=== PATIENT | female | born 1970 | race Caucasian/White ===

== ENCOUNTER → 2018-06-03 15:22 | Outpatient (REF) | payer BC, SELFPAY ==
--- NOTE | 2018-06-03 15:03 | ENDOMET_PTH ---
PATIENT: Gillian Jorgensen LOC: [facility] U#:[id number] AGE/SX: 55/F ROOM: RE06/03/[address]: Sakina Sellers MD : 1970 BED: DIS: SPEC #: [id number] RECD: 06/03/18 16:04 STATUS: CESAR REShannon #: [id number] BROOK: 06/03/18 15:[address]: Sakina Sellers DEPT: Surgical Specimen RECD BY: Linh Bond ENTERED: 06/03/18 16:04 SP TYPE: Endomet OTHR DR: Guanakito Rutledge Tissues: 1 - ENDOMETRIUM BX/JENNIFER Procedures: GROSS AND MICRO LEVEL 4 Comments: [id number]
== END ==
LOC: LBN 15:22
PROVIDERS: PCP Internal Medicine; Visit Provider Obstetrics & Gynecology
DX: N85.01 Benign endometrial hyperplasia (principal)
CPT/HCPCS: 88305

== ENCOUNTER 2019-05-21 11:28 | Outpatient (REF) | payer BC, SELFPAY ==
--- NOTE | 2019-05-21 09:50 | PAPFT_PTH ---
PATIENT: Gillian Jorgensen LOC: [facility] U#:[id number] AGE/SX: 48/F ROOM: RE05/21/[address]: Miley Reyes NP : 1970 BED: DIS: 05/21/2019 SPEC #: [id number] RECD: 05/21/19 12:51 STATUS: CESAR REShannon #: [id number] BROOK: 05/21/19 09:[address]: Miley Reyes NP DEPT: [facility] Cytology RECD BY: Linh Bond ENTERED: 05/21/19 12:51 SP TYPE: PAPFT OTHR DR: Guanakito Rutledge Tissues: 1 - CX/ENDOCX FOR PAP SMEARS Procedures: PAP THIN PREP/UVM Screening HPV DNA PROBE Comments: [id number]
== END 2019-05-21 11:48 ==
LOC: LBN 11:28
PROVIDERS: PCP Internal Medicine; Visit Provider Nurse Practitioner Women's Health
DX: Z12.4 Encounter for screening for malignant neoplasm of cervix (principal); Z11.51 Encounter for screening for human papillomavirus (HPV)
CPT/HCPCS: 88142; 87624

== ENCOUNTER 2021-05-19 09:03 | Outpatient (REF) | payer BC, SELFPAY ==
[2021-05-19 16:40] LABS: Anion Gap 14.6 mmol/L (3-11); BUN 18 mg/dL (7-18); CO2 22.4 mmol/L (21.0-32.0); CREATININE 0.8 mg/dL (0.55-1.02); Calcium 9.1 mg/dL (8.5-10.1); Calculated LDL 99 mg/dL (<100); Chloride 106 mmol/L (98-107); Cholesterol 179 mg/dL (<200); Glucose 85 mg/dL (74-106); HDL Cholesterol 43 mg/dL (40-60); Potassium 4.2 mmol/L (3.5-5.1); Sodium 143 mmol/L (136-145); Triglyceride 186 mg/dL (<150)
== END 2021-05-19 09:04 | disposition home or self-care (01) ==
LOC: NCHCN 09:03
PROVIDERS: PCP Nurse Practitioner Family; Visit Provider Nurse Practitioner Family
DX: Z00.00 Encounter for general adult medical examination without abnormal findings (principal); Z13.220 Encounter for screening for lipoid disorders
CPT/HCPCS: 80048; 80061

== ENCOUNTER 2021-06-10 14:06 | Outpatient (REF) | payer BC, SELFPAY ==
--- NOTE | 2021-06-10 13:30 | PAPFT_PTH ---
PATIENT: Gillian Jorgensen LOC: [facility] U#:[id number] AGE/SX: 50/F ROOM: RE06/10/[address]: CLIVE Bejarano : 1970 BED: DIS: 06/10/2021 SPEC #: [id number] RECD: 06/10/21 16:46 STATUS: CESAR REQ #: [id number] BROOK: 06/10/21 13:[address]: Nancy Nunez DEPT: [facility] Cytology RECD BY: Linh Bond ENTERED: 06/10/21 16:47 SP TYPE: PAPFT OTHR DR: Zeinab Keene Tissues: 1 - CX/ENDOCX FOR PAP SMEARS Procedures: PAP THIN PREP/UVM Screening HPV DNA PROBE Comments: [id number]
== END 2021-06-10 14:07 | disposition home or self-care (01) ==
LOC: LBN 14:06
PROVIDERS: PCP Nurse Practitioner Family; Visit Provider Nurse Practitioner Family
DX: Z12.4 Encounter for screening for malignant neoplasm of cervix (principal); Z11.51 Encounter for screening for human papillomavirus (HPV)
CPT/HCPCS: 88142; 87624

== ENCOUNTER 2023-05-14 03:04 | Outpatient (CLI) | payer BC, SELFPAY ==
--- NOTE | 2023-05-14 08:23 | DI.MAMMO_ITS ---
Exam(s) MAMMO SCREENING EXAM: MAMMO SCREENING CLINICAL HISTORY: screening,z12.39 TECHNIQUE: Mammograms were interpreted according to the usual protocol including computer analysis w [employer] CAD system, tomosynthesis and C-view imaging. COMPARISON: 2012 and 2015 FINDINGS: The breasts are composed of mainly fatty density , Breast Density category A. No suspicious masses or suspicious microcalcifications are seen. No skin thickening or abnormal axillary lymph nodes are seen. There has been no significant change from prior exams. IMPRESSION: BI-RADS Category 1, Negative mammogram Yearly screening mammography is recommended. Breast Density - Category A, fatty density. A negative radiographic report should not delay biopsy if a dominant or clinically suspicious mass is present. Up to ten percent of cancers are not identified on mammography. A negative report may reinforce clinical impression. Adenosis and dense breasts may obscure an underlying neoplasm. False positive reports average 6 to 10%. Patient will receive a letter notifying them of these results.
== END 2023-05-14 03:24 ==
LOC: DI 03:05
PROVIDERS: PCP Nurse Practitioner Family; Visit Provider Nurse Practitioner Women's Health
DX: Z12.31 Encounter for screening mammogram for malignant neoplasm of breast (principal)
CPT/HCPCS: 77063; 77067

== ENCOUNTER 2024-04-30 10:56 | Outpatient (REF) | payer BC, SELFPAY ==
--- NOTE | 2024-04-30 09:40 | PAPFT_PTH ---
PATIENT: Gillian Jorgensen LOC: [facility] U#:[id number] AGE/SX: 53/F ROOM: RE04/30/[address]: Miley Reyes NP : 1970 BED: DIS: 04/30/2024 SPEC #: [id number] RECD: 04/30/24 13:15 STATUS: CESAR GARCIA #: [id number] BROOK: 04/30/24 09:[address]: Miley Reyes NP DEPT: [facility] Cytology RECD BY: Linh Bond ENTERED: 04/30/24 13:15 SP TYPE: PAPFT OT DR: Unknown,Unknown Tissues: 1 - CX/ENDOCX FOR PAP SMEARS Procedures: PAP THIN PREP/UVM Screening HPV DNA PROBE Comments: [id number] (HPV 16 & 18/45)
== END 2024-04-30 10:57 | disposition home or self-care (01) ==
LOC: LBN 10:56
PROVIDERS: Visit Provider Nurse Practitioner Women's Health
DX: Z87.42 Personal history of other diseases of the female genital tract (principal)
CPT/HCPCS: 88142; 87624

== ENCOUNTER → 2024-05-22 00:12 | Outpatient (CLI) | payer BC, SELFPAY ==
--- OUTSIDE RECORDS SUMMARY | 2024-05-22 00:15 | XMS_ITS | Encounter Summary ---
Author Organization [facility] Address [address] [place] [address] Care Team Providers Care Narrow Fabric Calenderer Name Role Phone Christos Avina MD Primary Care Provider [phone] Encounter Details Date Type Department Care Team (Late st Contact Info) Description 05/27/2013 Results Only [facility] Laboratory Services - [facility] ([facility] [address] [place], [place] [address] Nancy Nunez, [facility] [address] [place] [address] [place] [address] Social History Tobacco Use Types Packs/Day Years Used Date Smoking Tobacco: Never Assessed Sex and Gender Information Value Date Recorded Sex Assigned at Not on file Gender Identity Not on file Sexual Orientation Not on file documented as of this encounter Plan of Treatment Not on file documented as of this encounter Procedures Procedure Name Priority Date/Time Associated Diagnosis Comments PAP TEST- RESULT ONLY Routine 05/27/2013 0:00 EDT documented in this encounter Results * PAP TEST- RESULT ONLY (05/27/2013 0:00 EDT) Pathology Report: CYTOPATHOLOGY REPORT Reports generated via electronic interface contain original data; however they are lacking the format of the original report. Caution should be taken when reading/interpreti ng unformatted reports. Name: ? GILLIAN JORGENSEN ? Accession #: ? [id number] : ? 1970 (Age: 42) ??F ?Collect Date: ? 05/27/2013 Location: ? [facility] ? Receive Date: ? 05/28/2013 Provider: ?NANCY NUNEZ LIFE SCIENCES MANAGER Copy to: ? Specimen/Source: ?Pap Test, Cervix/Endocervix, ThinPrep Imaging System with manual evaluation Last Menstrual Period: ? Menstrual/Pregnanc y Status: ? Irregular ? SPECIMEN ADEQUACY ? Satisfactory for Evaluation - transformation zone component present GENERAL CATEGORIZATION ? Negative for Intraepithelial Lesion or Malignancy ? Document reviewed and electronically signed by: ? Mona Cox, SCT(ASCP) ? Report Date: ??06/06/2013 12:08 End of Report BILL[facility] GARCÍA 05/27/2013 05/28/2013 Nancy Nunez LIFE SCIENCES MANAGER PATHOLOGY ORDERABLES Performing Organization Address City/State/[place] Co de Phone Number [facility] [address] [place] [address] documented in this encounter Visit Diagnoses Not on filedocumented in this encounter Care Teams Narrow Fabric Calenderer Relationship Specialty Start Date End Date Christos Avina MD [facility] [place], [place] [address] PCP - General 09/10/09 06/02/13 documented as of this encounter
--- OUTSIDE RECORDS SUMMARY | 2024-05-22 00:15 | XMS_ITS | Encounter Summary ---
Author Organization [facility] Address [address] [place] [address] Care Team Providers Care Ict Systems Test Engineer Name Role Phone Guanakito Rutledge MD Primary Care Provider [phone] Unknown, Provider Primary Care Provider [phone] Encounter Details Date Type Department Care Team (Late st Contact Info) Description 06/13/2021 Lab Requisition [facility] Pathology & Laboratory Medicine - [facility] [address] [place] [address] Nancy Nunez, [address] [place] [phone] Encounter for other general examination Social History Tobacco Use Types Packs/Day Years Used Date Smoking Tobacco: Never Assessed Interpersonal Safety Answer Date Record ed Physically Hurt Never 05/30/2020 Verbally Threaten Not on file 05/30/2020 Sex and Gender Information Value Date Recorded Sex Assigned at Not on file Gender Identity Not on file Sexual Orientation Not on file documented as of this encounter Plan of Treatment Not on file documented as of this encounter Procedures Procedure Name Priority Date/Time Associated Diagnosis Comments PAP TEST Today 06/10/2021 13:30 EDT Encounter for other general examination HPV DNA DETECTION WITH GENOTYPING, PCR Today 06/10/2021 13:30 EDT Encounter for other general examination documented in this encounter Results * HUMAN PAPILLOMAVIRUS (HPV) DETECTION-HIGH RISK TYPES (06/10/2021 13:30 EDT) HPV other High Risk types, PCR Negative Negative 06/23/2021 15:20 EDT [facility] Comment:No E6 or E7 mRNA is detected from HPV types 16,18,31,33,35,39,45,51,52,56,58,59,66, and 68 by supervisor boat outfitting mediated amplification. Papanicolaou smear specimen (specimen) CERVIX UTERI STRUCTURE / Unknown 06/10/2021 13:30 EDT 06/22/2021 10:59 EDT Nancy Nunez SUPERVISOR AGRICULTURAL EDUCATION MICROBIOLOGY - GENER AL ORDERABLES [facility] [address] [place] [address] * PAP TEST (06/10/2021 13:30 EDT) Specimens A. Cervix and/or Endocervix , ThinPrep Imaging System with Manual Evaluation 06/23/2021 15:20 T [facility] Specimen Adequacy Satisfactory for Evaluation - transformation zone component present 06/23/2021 15:20 [facility] General Categorization Negative for intraepithelial lesion or malignancy 06/23/2021 15:20 [facility] Attestation . 06/23/2021 15:20 [facility] at 1520 Clinical History See below 06/23/20 15:20 [facility] HPV The result for the Human Papillomavirus (HPV) Detection-High Risk Types is Negative. No E6 or E7 mRNA is detected from HPV types 16,18,31,33,35,39 ,45,51,52,56,58,5 9,66, and 68 by supervisor boat outfitting mediated amplification.Soo ting was performed on specimen [id number] and was resulted on 06/23/2021 1458 EDT by JACKIE, LAB INSTRUMENT RESULTS IN 06/23/2021 15:20 T [facility] Performing Lab [facility] 06/23/2021 15:20 T [facility] Scanned Images 06/23/2021 15:20 EDT [facility] Papanicolaou smear specimen (specimen) CERVIX UTERI STRUCTURE / Unknown 06/10/2021 13:30 EDT 06/13/2021 14:51 EDT Nancy Nunez SUPERVISOR AGRICULTURAL EDUCATION PATHOLOGY ORDERABLES Performing Organization Address City/State/[facility] Co de Phone Number [facility] [address] [place] [address] documented in this encounter Visit Diagnoses Diagnosis Encounter for other general examination documented in this encounter Care Teams Ict Systems Test Engineer Relationship Specialty Start Date End Date Guanakito Rutledge MD PCP - General 06/06/18 04/27/22 Unknown, ProviderMD PCP - General 04/28/24 documented as of this encounter
--- OUTSIDE RECORDS SUMMARY | 2024-05-22 00:15 | XMS_ITS | Encounter Summary ---
Author Organization [facility] [place] [address] Care Team Providers Care Medical Record Coder Name Role Phone Rizwan Liang DO Primary Care Provider [phone] Reason for Visit * Reason Comments Medication Refill Encounter Details Date Type Department Care Team ([facility] st Contact Info) Description 07/31/2015 Refill [place] [address] Shady Marquez APRN [facility] [place]STRO[place] [address] Social History Tobacco Use Types Packs/Day Years Used Date Smoking Tobacco: Never Sex and Gender Information Value Date Recorded Sex Assigned at Not on file Gender Identity Not on file Sexual Orientation Not on file documented as of this encounter Plan of Treatment Not on file documented as of this encounter Visit Diagnoses Not on filedocumented in this encounter Care Teams Medical Record Coder Relationship Specialty Start Date End Date Rizwan Liang DO [address] [facility] [place] [address] PCP - General 11/06/12 documented as of this encounter
--- OUTSIDE RECORDS SUMMARY | 2024-05-22 00:15 | XMS_ITS | Encounter Summary ---
Author Organization [facility] Address [address] [place] [address] Care Team Providers Care Log Handling Equipment Operator Name Role Phone Malika Corley MD Primary Care Provider Lu cortes Encounter Details Date Type Department Care Team (Latest Contact Info) Description 05/16/2018 15:07 EDT - 05/16/2018 18:35 EDT Hospital Encounter [address] [address] Unknown, Provider, Discharge Disposition: Home or Self Care Social History Tobacco Use Types Packs/Day Years Used Date Smoking Tobacco: Never Assessed Sex and Gender Information Value Date Recorded Sex Assigned at Not on file Gender Identity Not on file Sexual Orientation Not on file documented as of this encounter Discharge Disposition Disposition Code Departure Means Destination Home or Self Long Term documented in this encounter Plan of Treatment Not on file documented as of this encounter Visit Diagnoses Not on filedocumented in this encounter Care Teams Log Handling Equipment Operator Relationship Specialty Start Date End Date Malika Corley MD [address] [place] [address] PCP - General 06/03/13 8 documented as of this encounter
--- OUTSIDE RECORDS SUMMARY | 2024-05-22 00:15 | XMS_ITS | Encounter Summary ---
Author Organization [facility] [place] [address] Care Team Providers Care Excavating Supervisor Name Role Phone Rizwan Liang Primary Care Provider [phone] Encounter Details Date Type Department Care Team (Late st Contact Info) Description 11/14/2012 8:00 AM EST Office Visit [place] [phone] Joann Carson RVT Edema of both legs (Primary Dx) Social History Tobacco Use Types Packs/Day Years Used Date Smoking Tobacco: Never Sex and Gender Information Value Date Recorded Sex Assigned at Not on file Gender Identity Not on file Sexual Orientation Not on file documented as of this encounter Plan of Treatment Not on file documented as of this encounter Procedures Procedure Name Priority Date/Time Associated Diagnosis Comments VENOUS VALVULAR INCOMP, BILAT LEGS Routine 11/14/2012 8:18 AM EST Edema of both legs documented in this encounter Results * Venous Valvular Incomp, Bilat Legs (11/14/2012 8:18 AM EST) VB Text Report Department: Vascular Surgery Lab Patient: [id number] (EDE GILLIAN) CPT Code: 85902 ICD-9: 782.3 Referring Physician: MAKAYLA WHITFIELD Indication: ?? bilateral lower extremity edema; ? venous valvular incompetence ICD9 Diagnosis Code: Bilateral 782.3 Findings: Right Common Femoral Vein ?Reflux?: Competent ?Patency?: Yes Femoral Vein Thigh ?Reflux?: Competent ?Patency?: Yes Popliteal ?Reflux?: Competent ?Patency?: Yes Posterior Tibial Vein ?Reflux?: Competent ?Patency?: Yes Great Saphenous Vein, Near SFJ ?Reflux?: Reflux ?Patency?: Yes ?Diameter AP (mm): 6.9 ?Depth (mm): 15.9 Great Saphenous, Upper Thigh ?Reflux?: Reflux ?Patency?: Yes ?Diameter AP (mm): 5.3 ?Depth (mm): 25.5 Great Saphenous Vein, Mid Thigh ?Reflux?: Reflux ?Patency?: Yes ?Diameter AP (mm): 4.1 ?Depth (mm): 25.3 Great Saphenous Vein, ??Knee ?Reflux?: Competent ?Patency?: Yes ?Diameter AP (mm): 3.4 ?Depth (mm): 13.1 Great Saphenous Vein, Below Knee ?Reflux?: Competent ?Patency?: Yes ?Diameter AP (mm): 3.8 ?Depth (mm): 4.8 Short Saphenous, Below Knee ?Reflux?: Competent ?Patency?: Yes Left Common Femoral Vein ?Reflux?: Reflux ?Patency?: Yes Femoral Vein Thigh ?Reflux?: Reflux ?Patency?: Yes Popliteal ?Reflux?: Competent ?Patency?: Yes Posterior Tibial Vein ?Reflux?: Competent ?Patency?: Yes Great Saphenous Vein, Near SFJ ?Reflux?: Reflux ?Patency?: Yes ?Diameter AP (mm): 6.8 ?Depth (mm): 18.0 Great Saphenous, Upper Thigh ?Reflux?: Competent ?Patency?: Yes ?Diameter AP (mm): 6.1 ?Depth (mm): 31.1 Great Saphenous Vein, Mid Thigh ?Reflux?: Reflux ?Patency?: Yes ?Diameter AP (mm): 4.1 ?Depth (mm): 23.8 Great Saphenous Vein, ??Knee ?Reflux?: Competent ?Patency?: Yes ?Diameter AP (mm): 3.4 ?Depth (mm): 23.2 Great Saphenous Vein, Below Knee ?Reflux?: Competent ?Patency?: Yes ?Diameter AP (mm): 2.7 ?Depth (mm): 8.6 Short Saphenous, Below Knee ?Reflux?: Reflux ?Patency?: Yes Interpretation: RIGHT: Findings consistent with superficial venous valvular incompetence > 0.5 seconds in the GSV from the SFJ to the mid thigh, competent GSV from the distal thigh to the ankle. No evidence of deep venous valvular incompetence. No evidence of deep (fem-pop) or superficial vein thrombus. LEFT: There is reflux > 4 seconds in the small saphenous vein following distal augmentation maneuver. There is superficial venous valvular incompetence > 0.5 seconds in the GSV at the SFJ and at the mid thigh; competent GSV from the distal thigh to the ankle. There is reflux in the CFV and mid thigh femoral vein, competent in the popliteal vein and calf. No evidence of deep (fem-pop) or superficial vein thrombus. Comparison: No previous study in our vascular lab database for comparison. Signed by CLOTILDE KIRAN on 2012-11-14 02:11:56 PM [facility] VB Text Report End of Report [facility] 11/14/2012 8:18 AM EST Makayla Whitfield MD VASCULAR ORDERABLES [facility] documented in this encounter Visit Diagnoses Diagnosis Edema of both legs- Primary Edema documented in this encounter Care Teams Excavating Supervisor Relationship Specialty Start Date End Date Rizwan Liang DO [address] [place] [address] PCP - General 11/06/12 documented as of this encounter
--- OUTSIDE RECORDS SUMMARY | 2024-05-22 00:15 | XMS_ITS | Encounter Summary ---
Author Organization [facility] Address [address] [place] [address] Care Team Providers Care Doctor Of Medicine Name Role Phone Unknown, Provider Primary Care Provider [phone] Encounter Details Date Type Department Care Team (Late st Contact Info) Description 05/02/2024 Lab Requisition [facility] Pathology & Laboratory Medicine - [address] [address] Miley Reyes, PEOPLE MANAGER [address] [phone] Encounter for other general examination Social History [...] Date/Time Associated Diagnosis Comments PAP TEST Today 04/30/2024 9:40 EDT Encounter for other general examination HPV DNA DETECTION WITH GENOTYPING, PCR Today 04/30/2024 9:40 EDT Encounter for other general examination documented in this encounter Results * HPV DNA DETECTION WITH GENOTYPING, PCR (04/30/2024 9:40 EDT) HPV High Risk type 16, PCR Negative Negative 05/08/2024 15:51 EDT [facility] HPV High Risk type 18, PCR Negative Negative 05/08/2024 15:51 [facility] HPV other High Risk types, PCR Negative Negative 05/08/2024 15:51 [facility] Comment: The following Other High Risk HPV types were not detected: ??31,33, 35, 39, 45, 51, 52, 56, 58, 59, 66 and 68. Pap Test CERVIX UTERI STRUCTURE / Unknown 04/30/2024 9:40 EDT 05/07/2024 11:03 EDT Miley Reyes APRN MICROBIOLOGY - GE NERAL ORDERABLES [facility] [address] [place] [phone] * PAP TEST (04/30/2024 9:40 EDT) Specimens A. Cervix and/or Endocervix , ThinPrep Imaging System with Manual Evaluation 05/08/2024 15:51 [facility] Specimen Adequacy Satisfactory for Evaluation - transformation zone component present 05/08/2024 15:51 [facility] General Categorization Other see recommendation - Negative for intraepithelial lesion or malignancy 05/08/2024 15:51 [facility] Descriptive Diagnosis Endometrial cells present in a woman equal to or greater than age 45. 05/08/2024 15:51 [facility] Educational Comments Endometrial cells present. Endometrial cells in women 45 years or older may be associated with benign endometrium, hormonal alterations, and, less commonly, endometrial or uterine abnormalities. Endometrial evaluation is recommended in postmenopausal women. 05/08/2024 15:51 [facility] Attestation By the signature below, the attending physician certifies that they have personally conducted a gross and/or microscopic examination of the described specimens and rendered or confirmed the above diagnosis. 05/08/2024 15:51 [facility] at 1551 Clinical History See below 05/08/20 15:51 [facility] Performing Lab [facility] 05/08/2024 15:51 EDT [facility] Scanned Images 05/08/2024 15:51 EDT [facility] HPV High Risk type 16, PCR Negative 05/08/2024 15:51 EDT [facility] HPV High Risk type 18, PCR Negative 05/08/2024 15:51 EDT [facility] HPV Other High Risk Types, PCR Negative The following Other High Risk HPV types were not detected: 31,33, 35, 39, 45, 51, 52, 56, 58, 59, 66 and 68. 05/08/2024 15:51 EDT [facility] Pap Test CERVIX UTERI STRUCTURE / Unknown 04/30/2024 9:40 EDT 05/02/2024 15:52 EDT Miley Reyes PEOPLE MANAGER PATHOLOGY ORDERAB LES Performing Organization Address City/State/[facility] Co de Phone Number [facility] [address] [place] [address] documented in this encounter Visit Diagnoses Diagnosis Encounter for other general examination documented in this encounter Care Teams Doctor Of Medicine Relationship Specialty Start Date End Date Unknown, Provider, PCP - General 04/28/24 documented as of this encounter
--- OUTSIDE RECORDS SUMMARY | 2024-05-22 00:15 | XMS_ITS | Encounter Summary ---
Author Organization [facility] Address [address] [place] [address] Care Team Providers Care Outreach Assistant Name Role Phone Christos Avina MD Primary Care Provider Encounter Details Date Type Department Care Team (Late st Contact Info) Description 06/14/2005 Results Only [facility] [address] [place] [address] Nancy Nunez, [facility] [address] [place] [address] [place] [address] Social History Tobacco Use Types Packs/Day Years Used Date Smoking Tobacco: Never Assessed Sex and Gender Information Value Date Recorded Sex Assigned at Not on file Gender Identity Not on file Sexual Orientation Not on file documented as of this encounter Plan of Treatment Not on file documented as of this encounter Procedures Procedure Name Priority Date/Time Associated Diagnosis Comments CYTOPATHOLOGY Routine 06/14/2005 0:00 EDT documented in this encounter Results * CYTOPATHOLOGY (06/14/2005 0:00 EDT) Pathology Report: CYTOPATHOLOGY REPORT Reports generated via electronic interface contain original data; however they are lacking the format of the original report. Caution should be taken when reading/interpreti ng unformatted reports. Name: ? GILLIAN JORGENSEN ? Accession #: ? [id number] : ? 1970 (Age: 34) ??F ?Collect Date: ? 06/14/2005 Location: ? [facility] ? Receive Date: ? 06/16/2005 Provider: ?NANCY NUNEZ DEEP WELL CONTRACTOR Copy to: ? Specimen/Source: ?ThinPrep Pap Test, Cervix/Endocervix, processed on [employer] ThinPrep Imaging System, with manual evaluation Last Menstrual Period: ? 05/21/05 Previous Gynecologic Pathology: ? Benign cellular changes: & 07/29 Other: ? Additional clinical information: 12/30 pap neg. HPVA - HPV testing requested if ASC-US on the current ThinPrep Pap test. ? SPECIMEN ADEQUACY ? Satisfactory for Evaluation - transformation zone component present GENERAL CATEGORIZATION ? Negative for Intraepithelial Lesion or Malignancy ? Document reviewed and electronically signed by: ? KRYSTLE Lilly(ASCP) ? Report Date: ??06/26/2005 14:56 End of Report [facility] 06/14/2005 06/16/2005 Nancy Nunez DEEP WELL CONTRACTOR PATHOLOGY ORDERABLES [facility] [address] [place] [address] documented in this encounter Visit Diagnoses Not on filedocumented in this encounter Care Teams Outreach Assistant Relationship Specialty Start Date End Date Christos Avina MD [address] [place] [address] PCP - General 09/10/09 06/02/13 documented as of this encounter
--- OUTSIDE RECORDS SUMMARY | 2024-05-22 00:15 | XMS_ITS | Encounter Summary ---
Author Organization [facility] Address [address] [place] [address] Care Team Providers Care Assembly Line Machine Operator Name Role Phone Raven Corley MD Primary Care Provider Joaquína ble Encounter Details Date Type Department Care Team (Late st Contact Info) Description 05/22/2017 Results Only [facility] [[email or web address] [phone] Raven Corley MD [address] [place] [address] Social History Tobacco Use Types Packs/Day Years [...] Diagnosis Comments PAP TEST- RESULT ONLY Routine 05/22/2017 0:00 EDT documented in this encounter Results * PAP TEST- RESULT ONLY (05/22/2017 0:00 EDT) Pathology Report: CYTOPATHOLOGY REPORT Reports generated via electronic interface contain original data; however they are lacking the format of the original report. Caution should be taken when reading/interpreti ng unformatted reports. Name: ? GILLIAN JORGENSEN ? Accession #: ? [id number] ? : ? 1970 (Age: 46) ??F ?Collect Date: ? 05/22/2017 ? Location: ? [facility] ? Receive Date: ? 05/23/2017 ? Provider: RAVEN CORLEY MD Copy to: JUDE BROWNE MD ? Final Report SPECIMEN ADEQUACY ? Satisfactory for Evaluation - transformation zone component present GENERAL CATEGORIZATION ? Negative for Intraepithelial Lesion or Malignancy ?? Last Menstrual Period: 05/08/17 Previous Gynecologic Pathology: Yes: hx em Hyperplasia neg/neg Other: Additional clinical information: Low risk pap hx last 05/2014 Specimen/Source: ??Pap Test, Cervix, ThinPrep Imaging System with manual evaluation Document reviewed and electronically signed by: ? Andreea Angela, CT(ASCP) ? Report ??Date: 06/01/2017 10:24 HPV with Pap Test ? Date Ordered: ? 06/01/2017 ? Status: ?? Signed Out ?Date Complete: ? 06/04/2017 ? By: ??System Interface ? Date Reported: ? 06/04/2017 ? 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 E6 OR E7 mRNA from one or more types of HPV types 16,18,31, 33,35,39,45,51,52, 56,58,59,66, and 68 is detected by wage and salary specialist mediated amplification. High and intermediate risk HPV types are associated with most squamous intraepithelial lesions and cervical cancers. Comments Document reviewed and electronically signed by: ? System Interface ? Report date: 06/04/2017 By the signature above, the attending physician certifies that he/she has personally conducted a gross and/or microscopic examination of the described specimens and rendered or confirmed the above diagnosis. End of Report [facility] 05/22/2017 05/23/2017 Raven Corley MD PATHOLOGY ORDERABLES [facility] [address] [place] [address] documented in this encounter Visit Diagnoses Not on filedocumented in this encounter Care Teams Assembly Line Machine Operator Relationship Specialty Start Date End Date Raven Corley MD [address] [place] [address] PCP - General 06/03/13 8 documented as of this encounter
--- OUTSIDE RECORDS SUMMARY | 2024-05-22 00:15 | XMS_ITS | Referral Summary ---
Author Organization [facility] Address [address] [place] [address] Care Team Providers Care Shift Superintendent Name Role Phone Unknown, Provider Primary Care Provider [phone] Encounters Date Type Department Care Team Description 05/02/2024 Lab Requisition [facility] Pathology & Laboratory Medicine - [facility] [address] [place] [address] Miley Reyes APRN Encounter for other general examination from Last 3 Months Social History Tobacco Use Types Packs/Day Years Used Date Smoking Tobacco: Never Assessed Interpersonal Safety Answer Date Record ed Physically Hurt Never 05/30/2020 Verbally Threaten Not on file 05/30/2020 Sex and Gender Information Value Date Recorded Sex Assigned at Not on file Gender Identity Not on file Sexual Orientation Not on file Plan of Treatment Not on file Procedures Procedure Name Priority Date/Time Associated Diagnosis Comments PAP TEST Today 04/30/2024 9:40 EDT Encounter for other general examination HPV DNA DETECTION WITH GENOTYPING, PCR Today 04/30/2024 9:40 EDT Encounter for other general examination from Last 3 Months Results * PAP TEST (04/30/2024 9:40 EDT) Specimens A. Cervix and/or Endocervix , ThinPrep Imaging System with Manual Evaluation 05/08/2024 15:51 EDT [facility] Specimen Adequacy Satisfactory for Evaluation - transformation zone component present 05/08/2024 15:51 EDT [facility] General Categorization Other see recommendation - Negative for intraepithelial lesion or malignancy 05/08/2024 15:51 [facility] Descriptive Diagnosis Endometrial cells present in a woman equal to or greater than age 45. 05/08/2024 15:51 [facility] Educational Comments Endometrial cells present. Endometrial cells in women 45 years or older may be associated with benign endometrium, hormonal alterations, and, less commonly, endometrial or uterine abnormalities. Endometrial evaluation is recommended in postmenopausal women. 05/08/2024 15:51 [facility] Attestation By the signature below, the attending physician certifies that they have personally conducted a gross and/or microscopic examination of the described specimens and rendered or confirmed the above diagnosis. 05/08/2024 15:51 [facility] at 1551 Clinical History See below 05/08/20 15:51 [facility] Performing Lab [facility] 05/08/2024 15:51 [facility] Scanned Images 05/08/2024 15:51 [facility] HPV High Risk type 16, PCR Negative 05/08/2024 15:51 [facility] HPV High Risk type 18, PCR Negative 05/08/2024 15:51 [facility] HPV Other High Risk Types, PCR Negative The following Other High Risk HPV types were not detected: 31,33, 35, 39, 45, 51, 52, 56, 58, 59, 66 and 68. 05/08/2024 15:51 [facility] Pap Test CERVIX UTERI STRUCTURE / Unknown 04/30/2024 9:40 EDT 05/02/2024 15:52 EDT Miley Reyes RADIO TELEVISION ANNOUNCER PATHOLOGY ORDERAB LES [facility] [address] [place] [address] * HPV DNA DETECTION WITH GENOTYPING, PCR (04/30/2024 9:40 EDT) HPV High Risk type 16, PCR Negative Negative 05/08/2024 15:51 EDT [facility] HPV High Risk type 18, PCR Negative Negative 05/08/2024 15:51 EDT [facility] HPV other High Risk types, PCR Negative Negative 05/08/2024 15:51 EDT [facility] Comment: The following Other High Risk HPV types were not detected: ??31,33, 35, 39, 45, 51, 52, 56, 58, 59, 66 and 68. Pap Test CERVIX UTERI STRUCTURE / Unknown 04/30/2024 9:40 EDT 05/07/2024 11:03 EDT Miley Reyes APRN MICROBIOLOGY - NERAL ORDERABLES [facility] [address] [place] [address] from Last 3 Months Care Teams Shift Superintendent Relationship Specialty Start Date End Date Unknown, Provider, PCP - General 04/28/24
--- OUTSIDE RECORDS SUMMARY | 2024-05-22 00:15 | XMS_ITS | Encounter Summary ---
Author Organization [facility] Address [address] [place] [address] Care Team Providers Care Infection Prevention Specialist Name Role Phone Raven Corley MD Primary Care Provider Joaquína ble Encounter Details Date Type Department Care Team (Late st Contact Info) Description 05/29/2014 Results Only [facility]- [facility] [phone] Raven Corley MD [address] [place] [address] Social History Tobacco Use Types Packs/Day Years [...] Diagnosis Comments PAP TEST- RESULT ONLY Routine 05/29/2014 0:00 EDT documented in this encounter Results * PAP TEST- RESULT ONLY (05/29/2014 0:00 EDT) Pathology Report: CYTOPATHOLOGY REPORT Reports generated via electronic interface contain original data; however they are lacking the format of the original report. Caution should be taken when reading/interpreti ng unformatted reports. Name: ? GILLIAN JORGENSEN ? Accession #: ? [id number] ? : ? 1970 (Age: 43) ??F ?Collect Date: ? 05/29/2014 ? Location: ? [facility] ? Receive Date: ? 06/01/2014 ? Provider: RAVEN CORLEY MD Copy to: JUDE BROWNE MD ? Final Report SPECIMEN ADEQUACY ? Satisfactory for Evaluation - transformation zone component present GENERAL CATEGORIZATION ? Negative for Intraepithelial Lesion or Malignancy ?? Specimen/Source: ??Pap Test, Cervix/Endocervix, ThinPrep Imaging System with manual evaluation Document reviewed and electronically signed by: ? Milka Suh, CT(ASCP) ? Report ??Date: 06/03/2014 10:28 HPV with Pap Test ? Date Ordered: ? 06/03/2014 ? Status: ?? Signed Out ?Date Complete: ? 06/05/2014 ? By: ??System Interface ? Date Reported: ? 06/05/2014 ? Interpretation RESULT: Negative for HPV. No E6 or E7 mRNA is detected from HPV types 16,18,31,33,35, 39,45,51,52,56,58, 59,66, and 68 by eeo officer mediated amplification. Comments Document reviewed and electronically signed by: ? System Interface ? Report date: 06/05/2014 By the signature above, the attending physician certifies that he/she has personally conducted a gross and/or microscopic examination of the described specimens and rendered or confirmed the above diagnosis. End of Report [facility] 05/29/2014 06/01/2014 Raven Corley MD PATHOLOGY ORDERABLES Performing Organization Address City/State/[facility] Co de Phone Number [facility] [address] [place] [address] documented in this encounter Visit Diagnoses Not on filedocumented in this encounter Care Teams Infection Prevention Specialist Relationship Specialty Start Date End Date Raven Corley MD [address] [place] [address] PCP - General 06/03/13 8 documented as of this encounter
--- OUTSIDE RECORDS SUMMARY | 2024-05-22 00:15 | XMS_ITS | Clinical Summary ---
Author Organization [facility] Address [address] [place] [address] Care Team Providers Care Minesweeping Officer Name Role Phone Unknown, Provider Primary Care Provider [phone] Encounters Date Type Department Care Team Description 05/02/2024 Lab Requisition [facility] Pathology & Laboratory Medicine - [facility] [address] [place] [address] Miley Reyes APRN Encounter for other general [...] Orientation Not on file Plan of Treatment Health Maintenance Due Date Last Done Comments Hepatitis C Screen 1970 Hepatitis B Vaccine (1 of 3 - 19+ 3-dose series) 09/07 COVID-19 Vaccine (2022- season) 2023 Procedures Procedure Name Priority Date/Time Associated Diagnosis Comments PAP TEST Today 04/30/2024 9:40 EDT Encounter for other general examination HPV DNA DETECTION WITH GENOTYPING, PCR Today 04/30/2024 9:40 EDT Encounter for other general examination from Last 3 Months Results * PAP TEST (04/30/2024 9:40 EDT) Specimens A. Cervix and/or Endocervix , ThinPrep Imaging System with Manual Evaluation [facility] Specimen Adequacy Satisfactory for Evaluation - transformation zone component present 05/08/2024 15:51 [facility] General Categorization Other see recommendation - Negative for intraepithelial lesion or malignancy 05/08/2024 15:51 [facility] Descriptive Diagnosis Endometrial cells present in a woman equal to or greater than age 45. 05/08/2024 15:51 [facility] Educational Comments Endometrial cells present. Endometrial cells in women 45 years or older may be associated with benign endometrium, hormonal alterations, and, less commonly, endometrial or uterine abnormalities. Endometrial evaluation is recommended in postmenopausal women. 05/08/2024 15:51 [facility] Attestation By the signature below, the attending physician certifies that they have personally conducted a gross and/or microscopic examination of the described specimens and rendered or confirmed the above diagnosis. 05/08/2024 15:51 [facility] at 1551 Clinical History See below 05/08/20 15:51 [facility] Performing Lab [facility] 05/08/2024 15:51 [facility] Scanned Images 05/08/2024 15:51 [facility] HPV High Risk type 16, PCR Negative 05/08/2024 15:51 [facility] HPV High Risk type 18, PCR Negative 05/08/2024 15:51 [facility] HPV Other High Risk Types, PCR Negative The following Other High Risk HPV types were not detected: 31,33, 35, 39, 45, 51, 52, 56, 58, 59, 66 and 68. 05/08/2024 15:51 [facility] Pap Test CERVIX UTERI STRUCTURE / Unknown 04/30/2024 9:40 EDT 05/02/2024 15:52 EDT Miley A Eric COMPOSING ROOM SUPERVISOR PATHOLOGY ORDERAB LES [facility] [address] [place] [address] * HPV DNA DETECTION WITH GENOTYPING, PCR (04/30/2024 9:40 EDT) HPV High Risk type 16, PCR Negative Negative 05/08/2024 15:51 EDT [facility] HPV High Risk type 18, PCR Negative Negative 05/08/2024 15:51 EDT [facility] HPV other High Risk types, PCR Negative Negative 05/08/2024 15:51 EDT [facility] Comment: The following Other High Risk HPV types were not detected: ??31,33, 35, 39, 45, 51, 52, 56, 58, 59, 66 and 68. Pap Test CERVIX UTERI STRUCTURE / Unknown 04/30/2024 9:40 EDT 05/07/2024 11:03 EDT Miley Reyes COMPOSING ROOM SUPERVISOR MICROBIOLOGY - GE NERAL ORDERABLES Performing Organization Address City/State/[facility] Co de Phone Number [facility] [address] [place] [address] from Last 3 Months Care Teams Minesweeping Officer Relationship Specialty Start Date End Date Unknown, Provider, PCP - General 04/28/24
--- OUTSIDE RECORDS SUMMARY | 2024-05-22 00:15 | XMS_ITS | Encounter Summary ---
Author Organization [facility] Address [address] [place] [address] Care Team Providers Care Instrument/Control Technician Name Role Phone Christos Sykes MD Primary Care Provider [phone] Encounter Details Date Type Department Care Team (Late st Contact Info) Description 01/03/2008 Results Only [facility] [address] [place] [address] Malissa Powell MD [address] [address] Social History Tobacco Use Types Packs/Day Years Used Date Smoking Tobacco: Never Assessed Sex and Gender Information Value Date Recorded Sex Assigned at Not on file Gender Identity Not on file Sexual Orientation Not on file documented as of this encounter Plan of Treatment Not on file documented as of this encounter Procedures Procedure Name Priority Date/Time Associated Diagnosis Comments CYTOPATHOLOGY Routine 01/03/2008 0:00 EST SURGICAL PATHOLOGY Routine 01/03/2008 0:00 EST documented in this encounter Results * SURGICAL PATHOLOGY (01/03/2008 0:00 EST) Pathology Report: SURGICAL PATHOLOGY REPORT Reports generated via electronic interface contain original data; however they are lacking the format of the original report. Caution should be taken when reading/interpreti ng unformatted reports. Name: ? GILLIAN JORGENSEN ? Accession #: ? [id number] ? : ? 1970 (Age: 37) ??F ? Collect Date: ? 01/03/2008 ? Location: ? [facility] ? Receive Date: ? 01/04/2008 ? Provider: MALISSA POWELL MD Copy to: CHRISTOS SYKES MD ? Final Pathologic Diagnosis: ? Endometrium, biopsy: - Simple hyperplasia without atypia. Document reviewed and electronically signed by: AURE WALKER MD Report ??Date: 01/08/2008 16:42 By the signature above, the attending physician certifies that he/she has personally conducted a gross and/or microscopic examination of the described specimens and rendered or confirmed the above diagnosis. Specimen(s) Received: ? Endo bx Clinical History: ? Dysfunctional uterine bleeding Gross Description: ? Received in formalin labelled Jorgensen and leif bx is a 2.1 x 0.9 x 0.4 cm aggregate of roth, hemorrhagic tissue. ??Submitted in toto in one cassette. (Tyron Gonzalez)/mpl End of Report [facility] 01/03/2008 01/04/2008 8:3 7 EST Malissa Powell MD PATHOLOGY ORDERABLES [facility] [address] [place] [address] * CYTOPATHOLOGY (01/03/2008 0:00 EST) Pathology Report: CYTOPATHOLOGY REPORT Reports generated via electronic interface contain original data; however they are lacking the format of the original report. Caution should be taken when reading/interpreti ng unformatted reports. Name: ? GILLIAN JORGENSEN ? Accession #: ? [id number] : ? 1970 (Age: 37) ??F ?Collect Date: ? 01/03/2008 Location: ? [facility] ? Receive Date: ? 01/06/2008 Provider: ?MALISSA POWELL MD Copy to: ? Specimen/Source: ?ThinPrep Pap Test, Cervix/Endocervix, processed on Myfacep[employer] ThinPrep Imaging System, with manual evaluation Last Menstrual Period: ? 11/05 Other: ? HPVA - HPV testing requested if ASC-US on the current ThinPrep Pap test. Additional clinical information: Dysfunctional uterine bleeding ? SPECIMEN ADEQUACY ? Unsatisfactory for Evaluation, - insufficient numbers of squamous epithelial cells (less than 10% of expected cellularity) - sample preparation compromised by excessive blood GENERAL CATEGORIZATION ? Specimen processed and examined, but unsatisfactory for evaluation of epithelial abnormality. Recommend repeat Pap test or further follow up, as clinically indicated. ? Document reviewed and electronically signed by: ? KRYSTLE Powell(ASCP)(IAC) ? Report Date: ??01/07/2008 14:01 End of Report [facility] 01/03/2008 01/06/2008 Malissa Powell MD PATHOLOGY ORDERABLES [facility] [address] [place] [address] documented in this encounter Visit Diagnoses Not on filedocumented in this encounter Care Teams Instrument/Control Technician Relationship Specialty Start Date End Date Christos Sykes MD [facility] [place] [place] [address] PCP - General 09/10/09 06/02/13 documented as of this encounter
--- OUTSIDE RECORDS SUMMARY | 2024-05-22 00:15 | XMS_ITS | Encounter Summary ---
[place] [address] Care Team Providers Care Electrician'S Assistant Name Role Phone Rizwan Liang DO Primary Care Provider [phone] Reason for Visit * Reason Onset Date Comments Medication Refill 05/31/2015 Encounter Details Date Type Department Care Team (Late st Contact Info) Description 05/31/2015 Ref[place] [address] Sally Aguilar CMA GASTROENTEROLOGY DEPT Social History Tobacco Use Types Packs/Day Years Used Date Smoking Tobacco: Never Sex and Gender Information Value Date Recorded Sex Assigned at Not on file Gender Identity Not on file Sexual Orientation Not on file documented as of this encounter Plan of Treatment Not on file documented as of this encounter Visit Diagnoses Not on filedocumented in this encounter Care Teams Electrician'S Assistant Relationship Specialty Start Date End Date Rizwan Liang DO [address] [facility] [place] [address] PCP - General 11/06/12 documented as of this encounter
--- OUTSIDE RECORDS SUMMARY | 2024-05-22 00:15 | XMS_ITS | Encounter Summary ---
Author Organization [facility] Address [address] [place] [address] Care Team Providers Care Sterile Processing Technician Name Role Phone Amy Avina MD Primary Care Provider [phone] Encounter Details Date Type Department Care Team (Late st Contact Info) Description 12/22/2010 Results Only [facility] [phone] Raven Corley MD [address] [place] [address] Social History Tobacco Use Types Packs/Day Years Used Date Smoking Tobacco: Never Assessed Sex and Gender Information Value Date Recorded Sex Assigned at Not on file Gender Identity Not on file Sexual Orientation Not on file documented as of this encounter Plan of Treatment Not on file documented as of this encounter Procedures Procedure Name Priority Date/Time Associated Diagnosis Comments CYTOPATHOLOGY Routine 12/22/2010 0:00 EST SURGICAL PATHOLOGY Routine 12/22/2010 0:00 EST documented in this encounter Results * CYTOPATHOLOGY (12/22/2010 0:00 EST) Pathology Report: CYTOPATHOLOGY REPORT ? Reports generated via electronic interface contain original data; ? however they are lacking the format of the original report. ? Caution should be taken when reading/interpreti ng unformatted reports. ? Name: ? GILLIAN JORGENSEN ? Accession #: ? [id number] ? : ? 1970 (Age: 40) ??F ?Collect Date: ? 12/22/2010 ? Location: ? [facility] ? Receive Date: ? 12/23/2010 ? Provider: ?RAVEN CORLEY MD ? Copy to: ? Specimen/Source: ?Pap Test, Cervix/Endocervix, ThinPrep Imaging System ? with manual evaluation ? Last Menstrual Period: ? Other: ? Additional clinical information: Last pap 11/11/09 neg. ? SPECIMEN ADEQUACY ? Satisfactory for Evaluation ? - transformation zone component present ? GENERAL CATEGORIZATION ? Negative for Intraepithelial Lesion or Malignancy ? Document reviewed and electronically signed by: ? Rizwan Lubaler, CT(ASCP) ? Report Date: ??12/28/2010 10:07 ? End of Report ? [facility] 12/22/2010 12/23/2010 Raven Corley MD PATHOLOGY ORDERABLES [facility] [address] [place] [address] * SURGICAL PATHOLOGY (12/22/2010 0:00 EST) Pathology Report: SURGICAL PATHOLOGY REPORT ? Reports generated via electronic interface contain original data; ? however they are lacking the format of the original report. ? Caution should be taken when reading/interpreti ng unformatted reports. ? Name: ? GILLIAN JORGENSEN ? Accession #: ? [id number] ? : ? 1970 (Age: 40) ??F ? Collect Date: ? 12/22/2010 ? Location: ? [facility] ? Receive Date: ? 12/23/2010 ? Provider: RAVEN S ASHELY MD ? Copy to: AMY MARCIAL WOOD MD ? Final Pathologic Diagnosis: ? Endometrium, biopsy: ? - Disordered proliferative endometrium. ? Document reviewed and electronically signed by: ? ABDELMONEM ELHOSSEINY MD ? Report ??Date: 12/27/2010 17:58 ? By the signature above, the attending physician certifies that he/she has ? personally conducted a gross and/or microscopic examination of the described ? specimens and rendered or confirmed the above diagnosis. ? Specimen(s) Received: ? Endometrial bx ? Clinical History: ? Endometrial hyperplasia without atypia ? Gross Description: ? Received in formalin labelled Gillian Jorgensen and endometrial biopsy is a 1.5 x 1.5 x 0.4 cm aggregate of pink-roth, soft tissue fragments admixed with a small amount of red-brown blood clot. ??The specimen is filtered and entirely ? submitted in a single cassette. ??(Matthias Castillo)/[facility] ? End of Report ? [facility] 12/22/2010 12/23/2010 9:0 6 EST Raven Corley MD PATHOLOGY ORDERABLES [facility] [address] [place] [address] documented in this encounter Visit Diagnoses Not on filedocumented in this encounter Care Teams Sterile Processing Technician Relationship Specialty Start Date End Date Amy Avina MD [address] [place] [id number] PCP - General 09/10/09 06/02/13 documented as of this encounter
--- OUTSIDE RECORDS SUMMARY | 2024-05-22 00:15 | XMS_ITS | Encounter Summary ---
Author Organization [facility] [place] [address] Care Team Providers Care An/Ssn 2 4 Operator Name Role Phone None Primary Care Provider Unavailabl e Reason for Visit * Reason Onset Date Comments Other 10/08/2012 has increased be ntyl herself Encounter Details Date Type Department Care Team (Late st Contact Info) Description 10/08/2012 Telephone [place] [address] Shady Marquez APRN [facility] [address] [place] [address] Other (has increased bentyl herself) Social History Tobacco Use Types Packs/Day Years Used Date Smoking Tobacco: Never Assessed Sex and Gender Information Value Date Recorded Sex Assigned at Not on file Gender Identity Not on file Sexual Orientation Not on file documented as of this encounter Miscellaneous Notes * Telephone Encounter - Kendra Gómez RN - 10/08/2012 9:54 AM EST Pt. Has increased her bentyl to 2 pills tid Will update T Charmaine MURAL ARTIST ? probiotics I have left her a message to call back as not home Will explore increased s/s ? Using immodium, ? Diarrhea, diet? fodmap? documented in this encounter Plan of Treatment Not on file documented as of this encounter Visit Diagnoses Not on filedocumented in this encounter Care Teams An/Ssn 2 4 Operator Relationship Specialty Start Date End Date None None PCP - General 05/22/12 11/05/12 documented as of this encounter
--- OUTSIDE RECORDS SUMMARY | 2024-05-22 00:15 | XMS_ITS | Clinical Summary ---
Author Organization [facility] [place] [address] Care Team Providers Care Bending Shed Worker Name Role Phone Rizwan Liang DO Primary Care Provider Allergies No known active allergies Medications Medication Sig Dispensed Refills Start Date End Date Status CIS Free Text Med - immodium AD 02/04/2007 Active citalopram (CELEXA) 10 mg tablet 10MG = 1 Tablet(s), PO, Once daily 02/04/2007 Active topiramate (TOPAMAX) 50 mg tablet Take 50 mg by mouth daily. Active oxybutynin (DITROPAN) 5 mg tablet Take 5 mg by mouth 2 times daily. Active metFORMIN (GLUCOPHAGE) 850 mg tablet Take 850 mg by mouth 2 times daily (with meals). Active ropinirole (REQUIP) 4 mg tablet Take 8 mg by mouth nightly. Active dicyclomine (BENTYL) 10 mg Capsule Take 1 capsule by mouth daily. 30 capsule 1 05/31/2015 Active Active Problems Problem Noted Date Diagnosed Date Leg swelling 11/14/2012 IBS (irritable bowel syndrome) 05/22/2012 Social History Tobacco Use Types Packs/Day Years Used Date Smoking Tobacco: Never Sex and Gender Information Value Date Recorded Sex Assigned at Not on file Gender Identity Not on file Sexual Orientation Not on file Last Filed Vital Signs Vital Sign Reading Time Taken Comments Blood Pressure 112/55 11/14/2012 10:19 AM EST RI GHT Pulse 60 11/14/2012 10:19 AM EST Temperature - - Respiratory Rate - - Oxygen Saturation - - Inhaled Oxygen Concentration - - Weight 143.3 kg (316 lb) 11/14/2012 10:18 AM EST Height 167.6 cm (5' 6) 11/14/2012 10:18 AM EST Body Mass Index 51 11/14/2012 10:18 AM EST Plan of Treatment Health Maintenance Due Date Last Done Comments CT Colonography 1972 Colonoscopy 1972 Colorectal Cancer Screening 1972 FIT DNA 1972 FIT 1972 Sigmoidoscopy (10 year) with FIT yearly 1972 Sigmoidoscopy 1972 HIV screen 1990 Hepatitis C Screening 1990 Hepatitis B vaccine (0-59 yrs) (1) 1991 Tdap adult 1991 Tetanus vaccine 1991 HPV test 2002 PAP Smear 2002 Breast Cancer Share Decision Needed 2012 Breast Cancer screening 2012 Zoster vaccine (1 of 2) 2022 Covid-19 Vaccine (1 - 2022-24 season) 2023 Influenza (Flu) vaccine (1 o f 1 - Influenza standard series) 06/29/2024 Care Teams Bending Shed Worker Relationship Specialty Start Date End Date Rizwan Liang DO [address] [place] [address] PCP - General 11/06/12
--- OUTSIDE RECORDS SUMMARY | 2024-05-22 00:15 | XMS_ITS | Encounter Summary ---
Author Organization [facility] [place] [address] Care Team Providers Care Oiling Machine Operator Name Role Phone Rizwan Liang DO Primary Care Provider [phone] Reason for Visit * Reason Comments Medication Refill Encounter Details Date Type Department Care Team ([facility] st Contact Info) Description 08/13/2013 Refill [place] [address] Shady Marquez APRN [facility] [place] [address] Social History Tobacco Use Types Packs/Day Years Used Date Smoking Tobacco: Never Sex and Gender Information Value Date Recorded Sex Assigned at Not on file Gender Identity Not on file Sexual Orientation Not on file documented as of this encounter Plan of Treatment Not on file documented as of this encounter Visit Diagnoses Not on filedocumented in this encounter Care Teams Oiling Machine Operator Relationship Specialty Start Date End Date Rizwan Liang DO [address] [facility] [place] [address] PCP - General 11/06/12 documented as of this encounter
--- OUTSIDE RECORDS SUMMARY | 2024-05-22 00:15 | XMS_ITS | Encounter Summary ---
Author Organization [facility] [place] [address] Care Team Providers Care Manager Pacu Name Role Phone Rizwan Liang Primary Care Provider + [phone] Reason for Visit * Reason Comments Medication Problem Encounter Details Date Type Department Care Team (Late st Contact Info) Description 06/07/2015 Tele[place] [phone] Erica Villalpando, RN DEPT OF GASTROENTEROLOGY Medication Problem Social History Tobacco Use Types Packs/Day Years Used Date Smoking Tobacco: Never Sex and Gender Information Value Date Recorded Sex Assigned at Not on file Gender Identity Not on file Sexual Orientation Not on file documented as of this encounter Miscellaneous Notes * Telephone Encounter - Erica Rudolph RN - 06/07/2015 12:06 PM EDT Patient leaves message indicating last dicyclomine refill was incorrect, she takes 10mg, two capsules three times daily before meals, and there was only one refill. Returned patient's call indicated I could help fix script, however, she had not been seen for threeyears and needs an office visit. She states she can not come in until September, but has PCP visit tomorrow. She will ask PCP to fill. Advised patient call back if PCP not willing. Patient verbalized understanding. documented in this encounter Plan of Treatment Not on file documented as of this encounter Visit Diagnoses Not on filedocumented in this encounter Care Teams Manager Pacu Relationship Specialty Start Date End Date Rizwan Liang DO [address] [place] [phone] PCP - General 11/06/12 documented as of this encounter
--- OUTSIDE RECORDS SUMMARY | 2024-05-22 00:15 | XMS_ITS | Encounter Summary ---
[place] [address] Care Team Providers Care Joint Cleaning Machine Operator Name Role Phone Rizwan Liang Primary Care Provider [phone] Encounter Details Date Type Department Care Team (Late st Contact Info) Description 11/06/2012 Orders [place] [phone] Svetlana Marvin RN Edema of both legs Social History Tobacco Use Types Packs/Day Years Used Date Smoking Tobacco: Never Assessed Sex and Gender Information Value Date Recorded Sex Assigned at Not on file Gender Identity Not on file Sexual Orientation Not on file documented as of this encounter Plan of Treatment Not on file documented as of this encounter Results * Venous Valvular Incomp, Bilat Legs (11/14/2012 8:18 AM EST) VB Text Report Department: Vascular Surgery Lab Patient: [id number] (GILLIAN JORGENSEN) CPT Code: 90734 ICD-9: 782.3 Referring Physician: MAKAYLA WHITFIELD Indication: [...] AM EST Makayla Whitfield MD VASCULAR ORDERABLES Performing Organization Address City/State/[place] de Phone Number [facility] documented in this encounter Visit Diagnoses Diagnosis Edema of both legs Edema documented in this encounter Care Teams Joint Cleaning Machine Operator Relationship Specialty Start Date End Date Rizwan Liang DO [address] [place] [phone] PCP - General 11/06/12 documented as of this encounter
--- OUTSIDE RECORDS SUMMARY | 2024-05-22 00:15 | XMS_ITS | Encounter Summary ---
Author Organization [facility] Address [address] [place] [address] Care Team Providers Care Auto Body Repair Estimator Name Role Phone Malika Corley MD Primary Care Provider Joaquína ble Encounter Details Date Type Department Care Team (Late st Contact Info) Description 06/03/2018 Results Only [facility] [phone] Sakina Sellers MD [address] [place] [phone] Social History Tobacco Use Types Packs/Day Years Used Date Smoking Tobacco: Never Assessed Sex and Gender Information Value Date Recorded Sex Assigned at Not on file Gender Identity Not on file Sexual Orientation Not on file documented as of this encounter Plan of Treatment Not on file documented as of this encounter Procedures Procedure Name Priority Date/Time Associated Diagnosis Comments SURGICAL PATHOLOGY Routine 06/03/2018 8:48 EDT documented in this encounter Results * SURGICAL PATHOLOGY (06/03/2018 8:48 EDT) Pathology Report: SURGICAL PATHOLOGY REPORT Reports generated via electronic interface contain original data; however they are lacking the format of the original report. Caution should be taken when reading/interpret ing unformatted reports. Name: ? GILLIAN JORGENSEN ? Accession #: ? [id number] ? : ? 1970 (Age: 47) ??F ? Collect Date: ? 06/03/2018 ? Location: ? [facility] ? Receive Date: ? 06/04/2018 ? Provider: SAKINA SELLERS MD Copy to: JUDE ABBASI APRN ? Final Pathologic Diagnosis: ENDOMETRIUM, BIOPSY: - Secretory endometrium. Document reviewed and electronically signed by: KATIE DEL ANGEL MD Report ??Date: 06/05/2018 10:40 By the signature above, the attending physician certifies that he/she has personally conducted a gross and/or microscopic examination of the described specimens and rendered or confirmed the above diagnosis. Specimen(s) Received: Endometrial curettage Clinical History: Hx endometrial hyperplasia, simple, LMP: 05/07/18 Gross Description: ? Received in formalin labelled with proper patient identification (initials H, M) and endometrial curettage is an aggregate of roth and brown tissue (1.8 x 1.1 x 0.3 cm). Submitted in toto in 1 and 2. Cortez Root 06/04/2018 9:14 AM End of Report [facility] 06/03/2018 8:48 EDT 06/04/2018 8:48 EDT Sakina Sellers MD PATHOLOGY ORDERABLES [facility] [address] [place] [address] documented in this encounter Visit Diagnoses Not on filedocumented in this encounter Care Teams Auto Body Repair Estimator Relationship Specialty Start Date End Date Malika Corley MD [address] [place] [address] PCP - General 06/03/13 8 documented as of this encounter
--- OUTSIDE RECORDS SUMMARY | 2024-05-22 00:15 | XMS_ITS | Data Portability ---
Author Organization [place] - [facility] Address [address] [place] [address] Assessment No assessment recorded. Plan of Treatment Reminders Order Date Submit Date Provider Last Modified By Organization Details Last Modified Time Details Appointments Annual Wellness Exam 40 2023 02:30P M Bruce Mayes Not available Not available Not available Lab None recorded. Referral general surgeon referral - Pt, 53-F, for screening colo. Pt. mother w/hx. of anal cancer in early 50's. No signs/sym potms of CC. 2023 024 [facility], [address] [place] [address] , [address], [place], [address], 05/02/2024 08:20:24 Procedures None recorded. Surgeries None recorded. Imaging None recorded. Medication Orders None recorded. Patient TargetsNo targets recorded. Patient Instructions Encounter Date Encounter Id Patient Instructions Last Modified By Organization Details Last Modified Time 02/11/2024 [id number] Please take caffeine and ibuprofen/Aleve/A spirine/Excedrine vacation. If you are still experiencing high headache frequency after this, do give us a call and let us know, I would likely start you on an additional medication. [email or web address] Not available 02/11/2024 10:59:15 Reason for Referral General Surgeon Referral for Screening for malignant neoplasm of colon Pt, 53-F, for screening colo. Pt. mother w/hx. of anal cancer in early 50's. No signs/sympotms of CC. Referring Physician: Yordan Mayes, Family Medicine, Encounter Date: 02/11/2024 Problems Name Status Onset Date Resolution Date Notes Provider Name and Address Organization Details Recorded Time Body mass index 40+ - severely obese Active 201509/08/2022 - Comments only - Zeinab Keene APRN - Wt stable, though pt aware that her diet is not optimal. Reviewed low carb diet recommendatio ns. Problem Code: Z68.41; Problem Code Type: ICD-10; Not Available [facility] 3 05:30:22 Migraine Active 201505/16/2018 - Comments only - Zeinab Keene APRN - Managed with topiramate. Problem Code: G43.909; Problem Code Type: ICD-10; Not Available [facility] 3 05:30:22 Anxiety Active 201509/08/2022 - Comments only - Zeinab Keene APRN - Stable, well-controll ed with fluoxetine 30mg daily. Problem Code: F41.8; Problem Code Type: ICD-10; Not Available [facility] 3 05:30:22 Polycystic ovary syndrome Active 201509/08/2022 - Comments only - Zeinab Keene APRN - Menses are regular on metformin. Problem Code: E28.2; Problem Code Type: ICD-10; Not Available [facility] 3 05:30:22 Irritable bowel syndrome Active 201509/08/2022 - Comments only - Zeinab Keene APRN - Currently well-managed with dicyclomine and SSRI for anxiety. Problem Code: K58.9; Problem Code Type: ICD-10; Not Available [facility] 3 05:30:22 Adult health examination Active 201509/08/2022 - Comments only - Zeinab Keene APRN - Has mammogram scheduled, screening colonoscopy ordered, UTD with pap. Pt declines covid booster and flu vaccine, utd with tetanus vaccine. Problem Code: Z00.00; Problem Code Type: ICD-10; Not Available [facility] 3 05:30:22 Counseling Completed 201606/01/2017 05/21/2017 - Comments only - Zeinab Keene APRN - Up to date with preventive screening and immunizations . Has [employer] WORK[employer] care at . Problem Code: Z71.89; Problem Code Type: ICD-10; Not Available [facility] 3 05:30:22 Restless legs Active 201605/16/2018 - Comments only - Zeinab Keene APRN - Appears to be muscular, no neurological sxs. Referral to PT. Problem Code: G25.81; Problem Code Type: ICD-10; Not Available [facility] 3 05:30:22 Cough Completed 201709/16/2018 Problem Code: R05; Problem Code Type: ICD-10; Not Available [facility] 3 05:30:23 Adjustment disorder with depressed mood Active 2019 Problem Code: F43.21; Problem Code Type: ICD-10; Not Available [facility] 3 05:30:23 Hyperlipidemi a screening Active 2020 Problem Code: Z13.220; Problem Code Type: ICD-10; Not Available [facility] 3 05:30:23 Screening for malignant neoplasm of colon Active 2021 Problem Code: Z12.11; Problem Code Type: ICD-10; Not Available [facility] 3 05:30:23 Urge incontinence of urine Active 202109/08/2022 - Comments only - Zeinab Keene APRN - Referral to PT, as recommended by [employer] RO[employer] WORKER. Problem Code: N39.41; Problem Code Type: ICD-10; Not Available [facility] 3 05:30:23 Severe obesity Completed 201507/25/2023 05/16/2018 - Comments only - Zeinab Keene APRN - Strongly encouraged to start regular exercise program. Work on limiting carbs, sugars and total calories. Problem Code: E66.01; Problem Code Type: ICD-10; Not Available [facility] 3 05:30:23 Low back pain Completed 201711/28/2019 Problem Code: M54.5; Problem Code Type: ICD-10; Not Available [facility] 3 05:30:23 Migraine without aura Completed 201206/06/2016 Problem Code: 346.1; Problem Code Type: ICD-9; Not Available [facility] 3 05:30:24 Disorder of skin and/or subcutaneous tissue Completed 201905/19/2021 Problem Code: L98.9; Problem Code Type: ICD-10; Not Available [facility] 3 05:30:24 Fatigue Completed 201905/19/2021 Problem Code: R53.83; Problem Code Type: ICD-10; Not Available [facility] 3 05:30:24 Morbid obesity Completed 201206/06/2016 Not Available [facility] 3 05:30:24 Irritable bowel syndrome Completed 201206/06/2016 Not Available [facility] 3 05:30:24 Adjustment disorder Completed 201905/19/2021 Problem Code: F43.20; Problem Code Type: ICD-10; [facility] [address] , [facility] 4 06:35:52 Bronchitis Completed 201705/30/2019 Problem Code: J40; Problem Code Type: ICD-10; Not Available [facility] 3 05:30:24 Polycystic ovaries Completed 201206/06/2016 Not Available [facility] 3 05:30:24 Anxiety state Completed 201206/06/2016 Problem Code: 300.00; Problem Code Type: ICD-9; Not Available [facility] 3 05:30:25 Adjustment disorder Active 2023 Problem Code: F43.20; Problem Code Type: ICD-10; [facility] [address] , [facility] 4 06:35:52 Headache Active [address] [facility] [address] , [facility] 4 13:48:37 Migraine with aura Active 2023 JOEL CAO [address], [place], [address] , [facility] 4 07:56:16 Migraine without aura, not refractory Active 2023 JOEL CAO [address], [place], [address] , [facility] 4 07:56:33 Problem Notes None recorded. Medical Equipment None Reported. Medications Name Sig Start Date Stop Date Status Note LastModified by Organization Details LastModified Time benzonata te 200 mg capsule Take 1 cap by mouth three times daily as needed for cough 05/30 completed Not Available Not Available Not Available citalopra m 10 mg tablet 1TAB daily 06/17 completed Not Available Not Available Not Available valacyclo vir 1 gram tablet TAKE TWO TABLETS BY MOUTH TWICE A DAY FOR 1 DAY NEEDED FOR COLD SORE OUTBREAK 2023 active Not Available Not Available Not Avai lable Lotrisone 1 %-0.05 % topical cream Apply thin layer to lesion on ear 06/18 completed Not Available Not Available Not Available metformin 850 mg tablet TAKE ONE TABLET BY MOUTH TWICE A DAY active Not Available Not Available No t Available amoxicill in 500 mg tablet Take one tab by mouth three times a day 10/27 completed Dental prescrip tion Not Available Not Available Not Available lorazepam 0.5 mg tablet Take 1 tab by mouth daily as needed for panic attack 06/18 completed Not Available Not Available Not Available dicyclomi ne 20 mg tablet TAKE ONE TABLET BY MOUTH THREE TIMES A DAY NEEDED active Not Available Not Available No t Available meclizine 25 mg tablet 1TAB three times daily 11/27 completed Not Available Not Available Not Available fluoxetin e 20 mg tablet TAKE 1&1/2 TABLETS BY MOUTH ONCE DAILY active Not Available Not Available No t Available fluoxetin e 10 mg capsule TAKE ONE CAPSULE BY MOUTH AT BEDTIME ALONG WITH 20MG FOR TOTAL DOSE OF 30MG active Not Available Not Available No t Available Provera 10 mg tablet 1TAB daily 12/24 completed Not Available Not Available Not Available topiramat e 100 mg tablet TAKE ONE TABLET BY MOUTH TWICE A DAY active Not Available Not Available No t Available fluoxetin e 20 mg capsule TAKE ONE CAPSULE BY MOUTH AT BEDTIME ALONG WITH 10MG FOR TOTAL DOSE OF 30MG active Not Available Not Available No t Available topiramat e 50 mg tablet 1TAB twice daily 06/17 completed Not Available Not Available Not Available Imodium A-D 10-15 CAP daily 11/28 completed Not Available Not Available Not Available Symbicort 80 mcg-4.5 mcg/actua tion HFA aerosol inhaler INHALE 1 PUFF BY MOUTH TWICE DAILY 06/18 completed Not Available Not Available Not Available Probiotic 10 billion cell capsule 1 tablet by mouth twice a day 2017 active OTC Not Available Not Available Not Avai lable Probiotic 1 tab twice daily 2017 active OTC Not Available Not Available Not Avai lable Osteo Bi-Flex 250 mg-200 mg tablet active Not Available Not Available Not Available dicyclomi ne 10 mg tablet 2CAP three times daily at meal 12/24 completed Not Available Not Available Not Available Vitals Date Recorded Body height Body mass index (BMI) Body weight Body temperature Oxygen saturation Oxygen saturation in Arterial blood by Pulse oximetry Heart rate Systolic blood pressure Diastolic blood pressure Provider Name and Address Organization Details Last Updated DateTime 4 165.1 cm 44.3 kg/m2 134280. 29 g 97.7 [degF] 96 % 96 % 84 /min 108 mm[Hg] 68 mm[Hg] SHANTAL GONSALVES MA [facility] 4 10:31:27 Social History None recorded. Functional Status None recorded. Mental Status None recorded. Family History Relationship Description Onset Age of this Age Resolved Age Notes Mother Family history of Arthritis Mother Family history of ca ncer of colon Mother Family history of he art failure Father Family history of malignant neoplasm Notes:*Problem: Mother: Caitlin lucas 67 yrs heart problems, DJD bothering her bones needs replacements, anal cancer Father: from prostate cancer Sisters: 1 good health Brothers: 1 as baby, 1 good health Children: 1 good health Family History of: Hypertension: No Hyperlipidemia: No Coronary heart disease: Yes mother, mother's parents and father's parents Diabetes mellitus: Yes father's side Breast cancer: Yes gram's cousin Colorectal cancer: Yes mother Prostate cancer: Yes father Alcoholism: Yes brother Mental illness: No Other: No Medical History No medical history recorded. Gynecological HistoryNo gynecological history recorded. Obstetrics History GPAL:G 0 P 0 0 0 0 Immunizations Vaccine Type Date Status Provider Name and Address Organization Details Recorded Time Tdap 06/17/2013 completed Not Available [facility] 06:11:17 COVID-19 vaccine, vector-nr, rS-Ad26, PF, 0.5 mL 05/19/2021 completed Not Available [facility] 2023 06:11:18 influenza, unspecified formulation 12/24/2014 completed Not Available [facility] 2023 06:11:18 influenza, unspecified formulation 10/28/2013 completed Not Available [facility] 2023 06:11:18 Past Encounters Encounter ID Performer Location Encounter Start Date Encounter Closed Date Diagnosis/Indication Diagnosis SNOMED-CT Code [id number] [address] [place] [address] 02/11/2024 10:16:05 02/11/2024 11:20:30 Anxiety 67827804 Irritable bowel syndrome 28184305 Polycystic ovary syndrome 704577929 Adjustment disorder 1722 6007 Migraine 86236466 Screening for malignant neoplasm of colon 062451081 Health Concerns Section Related Observation LastModified by Organization Detai ls LastModified Time None Recorded Concern Status LastModified by Organization Details LastModified Time None Recorded Advance Directives Directive None Recorded Payers Encounter Date Sequence Insurance Name Policy Number Policy Mcdonald Covered Member ID Mcdonald Member ID Guarantor Name 02/11/2024 1 [place] [employer] [place] [employer] BLUE [employer]AN F (MEDICARE SUPPLEMENT) Gillian Jorgensen [id number] Gillian Jorgensen Notes Date Note Type Note Provider Name and Address Organization Details Recorded Time 02/11/2024 text/html HPI Notes: Pt, 53-F, here to establish care with new provider. She has hx. of multiple chronic conditions including IBS, migraine, anxiety, severe obesity, PCOS, HSV-1 (cold sores). See med list for modifying factor. Migraine, Pt. reports having regular Migraine breakthrough. She is having migraine about 1-2 times per week. Sometimes it's just a headache. She's been using the Excedrin trying to head it off and sometimes it works, sometimes accompanying light headedness. On a regular workday, one travel mug of caffiene. On a weekend 2-3 cups of coffee. Pt. denies any new stresses in life. She does report some times when she is waking up her mind gets busy and can have difficulty falling back asleep. 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 Topomax is the only preventative medication she has ever taken. Pt. reports headache may be more geared towards morning. Pt. reports she has been taking Excedrine every morning. [facility], she had pap in 2022. Also had mammogram in summer , she states they were all WNL.. Colonoscopy. Pt. reports mom had anal cancer. No change in bowel pattern, no dark tarry stools, no blood in stool, no pencil thin stools. JOEL CAO [address], [place], [address], [facility]. 02/11/2024 12:46:16 OBGyn Episode No OBEpisode recorded.
--- OUTSIDE RECORDS SUMMARY | 2024-05-22 00:15 | XMS_ITS | Encounter Summary ---
Author Organization [facility] [place] [address] Care Team Providers Care Finance Insurance Manager Name Role Phone Rizwan Liang DO Primary Care Provider Reason for Visit * Reason Comments Medication Refill Encounter Details Date Type Department Care Team ([facility] st Contact Info) Description 06/11/2014 [place] [address] Shady Marquez APRN [facility] [place] [address] Social History Tobacco Use Types Packs/Day Years Used Date Smoking Tobacco: Never Sex and Gender Information Value Date Recorded Sex Assigned at Not on file Gender Identity Not on file Sexual Orientation Not on file documented as of this encounter Plan of Treatment Not on file documented as of this encounter Visit Diagnoses Not on filedocumented in this encounter Care Teams Finance Insurance Manager Relationship Specialty Start Date End Date Rizwan Liang DO [address] [facility] [place] [address] PCP - General 11/06/12 documented as of this encounter
--- OUTSIDE RECORDS SUMMARY | 2024-05-22 00:15 | XMS_ITS | Encounter Summary ---
Author Organization [facility] [place] [address] Care Team Providers Care Corrections Unit Supervisor Name Role Phone Rizwan Liang DO Primary Care Provider Reason for Visit * Reason Onset Date Comments Medication Refill 10/10/2012 Encounter Details Date Type Department Care Team (Late st Contact Info) Description 10/10/2012 Refill [place] [address] Shady Marquez APRN [facility] [address] [place] [address] Abdominal spasms (Primary Dx) Social History Tobacco Use Types Packs/Day Years Used Date Smoking Tobacco: Never Assessed Sex and Gender Information Value Date Recorded Sex Assigned at Not on file Gender Identity Not on file Sexual Orientation Not on file documented as of this encounter Plan of Treatment Not on file documented as of this encounter Visit Diagnoses Diagnosis Abdominal spasms- Primary Abdominal pain, unspecified site documented in this encounter Care Teams Corrections Unit Supervisor Relationship Specialty Start Date End Date Rizwan Liang DO [address] [place] [address] PCP - General 11/06/12 documented as of this encounter
--- OUTSIDE RECORDS SUMMARY | 2024-05-22 00:15 | XMS_ITS | Encounter Summary ---
[place] [address] Care Team Providers Care Bus Person Dishwasher Name Role Phone Christos Avina MD Primary Care Provider [phone] Reason for Visit * Reason Onset Date Comments Medication Refill 02/28/2011 Encounter Details Date Type Department Care Team (Late st Contact Info) Description 02/28/2011 Ref[place] [address] Pearl [place] RN Abdominal spasms (Primary Dx) Social History Tobacco [...] site documented in this encounter Care Teams Bus Person Dishwasher Relationship Specialty Start Date End Date Christos Avina MD [address] [place] [address] PCP - General 09/20/10 05/21/12 documented as of this encounter
--- OUTSIDE RECORDS SUMMARY | 2024-05-22 00:15 | XMS_ITS | Encounter Summary ---
Author Organization [facility] Address [address] [place] [address] Care Team Providers Care Pile Trimmer Name Role Phone Guanakito Rutledge MD Primary Care Provider [phone] Encounter Details Date Type Department Care Team (Late st Contact Info) Description 05/21/2019 Results Only [facility] [phone] Briseida Abbasi, CASHIER SELF SERVICE GASOLINE [address] [address] Social History Tobacco Use Types [...] Diagnosis Comments PAP TEST- RESULT ONLY Routine 05/21/2019 0:00 EDT documented in this encounter Results * PAP TEST- RESULT ONLY (05/21/2019 0:00 EDT) Pathology Report: CYTOPATHOLOGY REPORT Reports generated via electronic interface contain original data; however they are lacking the format of the original report. Caution should be taken when reading/interpreti ng unformatted reports. Name: ? GILLIAN JORGENSEN ? Accession #: ? [id number] ? : ? 1970 (Age: 48) ??F ?Collect Date: ? 05/21/2019 ? Location: ? [facility] ? Receive Date: ? 05/22/2019 ? Provider: BRISEIDA ABBASI CASHIER SELF SERVICE GASOLINE Copy to: GUANAKITO RUTLEDGE MD ? Final Report SPECIMEN ADEQUACY ? Satisfactory for Evaluation - transformation zone component absent GENERAL CATEGORIZATION ? Negative for Intraepithelial Lesion or Malignancy INTERPRETATION ? Reactive cellular changes associated with inflammation present (includes repair). 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 Last Menstrual Period: 05/01/19 Previous Gynecologic Pathology: ASC-US: 2018 Infection History: Pos for HPV: 2017 Neg for HPV: 2018 Specimen/Source: ??Pap Test, Cervix, ThinPrep Imaging System with manual evaluation Document reviewed and electronically signed by: ? MITCHELL OTTO MD ? Report ??Date: 05/27/2019 11:02 HPV with Pap Test ? Date Ordered: ? 05/27/2019 ? Status: ?? Signed Out ?Date Complete: ? 05/28/2019 ? By: ??System Interface ? Date Reported: ? 05/28/2019 ? Interpretation RESULT: Negative for HPV. No E6 or E7 mRNA is detected from HPV types 16,18,31,33,35, 39,45,51,52,56,58, 59,66, and 68 by paring machine operator mediated amplification. Comments Document reviewed and electronically signed by: ? System Interface ? Report date: 05/28/2019 By the signature above, the attending physician certifies that he/she has personally conducted a gross and/or microscopic examination of the described specimens and rendered or confirmed the above diagnosis. End of Report [facility] 05/21/2019 05/22/2019 Briseida Abbasi APRN PATHOLOGY ORDERAB LES [facility] [address] [place] [address] documented in this encounter Visit Diagnoses Not on filedocumented in this encounter Care Teams Pile Trimmer Relationship Specialty Start Date End Date Guanakito Rutledge MD PCP - General 06/06/18 04/27/22 documented as of this encounter
--- OUTSIDE RECORDS SUMMARY | 2024-05-22 00:15 | XMS_ITS | Encounter Summary ---
Author Organization Health system Address [address] [place] [address] Care Team Providers Care Strand Galvanizer Name Role Phone Malika Corley MD Primary Care Provider Joaquína ble Encounter Details Date Type Department Care Team (Late st Contact Info) Description 05/16/2018 Results Only [facility] [phone] Briseida Abbasi, CRUDE OIL DRIVER [address] [address] Social History Tobacco Use Types [...] Date/Time Associated Diagnosis Comments SURGICAL PATHOLOGY Routine 05/16/2018 22 :52 EDT PAP TEST- RESULT ONLY Routine 05/16/2018 0:00 EDT documented in this encounter Results * SURGICAL PATHOLOGY (05/16/2018 22:52 EDT) Pathology Report: SURGICAL PATHOLOGY REPORT Reports generated via electronic interface contain original data; however they are lacking the format of the original report. Caution should be taken when reading/interpret ing unformatted reports. Name: ? GILLIAN JORGENSEN ? Accession #: ? [id number] ? : ? 1970 (Age: 47) ??F ? Collect Date: ? 05/16/2018 ? Location: ? [facility] ? Receive Date: ? 05/16/2018 ? Provider: BRISEIDA ABBASI APRN Copy to: JUDE BROWNE MD ? Final Pathologic Diagnosis: ENDOMETRIUM, BIOPSY: - Fragments of endocervical tissue with microglandular hyperplasia and squamous metaplasia. - No endometrial tissue identified. Document reviewed and electronically signed by: JESÚS RODRIGUES MD Report ??Date: 05/20/2018 14:56 By the signature above, the attending physician certifies that he/she has personally conducted a gross and/or microscopic examination of the described specimens and rendered or confirmed the above diagnosis. Specimen(s) Received: Endometrial biopsy Clinical History: History of endometrial hyperplasia; LMP: 05/08/2018 Gross Description: ? Received in formalin labelled with proper patient identification (initials H, M) and endo bx endometrial is an aggregate of roth-brown mucinous material (1.5 x 0.9 x 0.3 cm). Submitted in toto in 1 and 2. Cortez Root 05/17/2018 8:57 AM End of Report [facility] 05/16/2018 22:5 2 EDT 05/16/2018 22:52 EDT Briseida Abbasi APRN PATHOLOGY ORDERAB LES [facility] [address] [place] [address] * PAP TEST- RESULT ONLY (05/16/2018 0:00 EDT) Pathology Report: CYTOPATHOLOGY REPORT Reports generated via electronic interface contain original data; however they are lacking the format of the original report. Caution should be taken when reading/interpret ing unformatted reports. Name: ? GILLIAN JORGENSEN ? Accession #: ? [id number] ? : ? 1970 (Age: 47) ??F ?Collect Date: ? 05/16/2018 ? Location: ? [facility] ? Receive Date: ? 05/17/2018 ? Provider: BRISEIDA ABBASI APRN Copy to: JUDE BROWNE MD ? Final Report SPECIMEN ADEQUACY ? Satisfactory for Evaluation - transformation zone component present GENERAL CATEGORIZATION ? Epithelial Cell Abnormality INTERPRETATION ? Squamous Cell Abnormality - Atypical squamous cells, undetermined significance (ASC-US). Shift in lily present suggestive of bacterial vaginosis. EDUCATIONAL NOTES/RECOMMENDAT IONS ? [facility] recommends following ASCCP's 2012 Updated Consensus Guidelines for the Management of Abnormal Cervical Cancer Screening Tests and Cancer Precursors (JLGTD, 2013; 17(5):S1-S27). ??Consensus guidelines are available online at www.asccp.org. Last Menstrual Period: 05/08/18 Hormonal/Contrace ptive status: None Infection History: Pos for HPV: 2017 Other: Additional clinical information: NEG PAP , Hx andometrial hyperplasia 2012 Specimen/Source: ??Pap Test, Cervix, ThinPrep Imaging System with manual evaluation Document reviewed and electronically signed by: ? SHERIF WISDOM MD ? Report ??Date: 05/28/2018 17:54 HPV with Pap Test ? Date Ordered: ? 05/28/2018 ? Status: ?? Signed Out ?Date Complete: ? 05/29/2018 ? By: ??System Interface ? Date Reported: ? 05/29/2018 ? Interpretation RESULT: Negative for HPV. No E6 or E7 mRNA is detected from HPV types 16,18,31,33,35, 39,45,51,52,56,58 ,59,66, and 68 by business rules developer mediated amplification. Comments Document reviewed and electronically signed by: ? System Interface ? Report date: 05/29/2018 By the signature above, the attending physician certifies that he/she has personally conducted a gross and/or microscopic examination of the described specimens and rendered or confirmed the above diagnosis. End of Report [facility] 05/16/2018 05/17/2018 Briseida Abbasi APRN PATHOLOGY ORDERAB LES Performing Organization Address City/State/[facility] Co de Phone Number [facility] [address] [place] [address] documented in this encounter Visit Diagnoses Not on filedocumented in this encounter Care Teams Strand Galvanizer Relationship Specialty Start Date End Date Malika Corley MD [address] [place] [address] PCP - General 06/03/13 8 documented as of this encounter
--- OUTSIDE RECORDS SUMMARY | 2024-05-22 00:15 | XMS_ITS | Encounter Summary ---
Author Organization [facility] [place] [address] Care Team Providers Care Electrician Substation Name Role Phone None Primary Care Provider Unavailabl e Encounter Details Date Type Department Care Team (Late st Contact Info) Description 05/22/2012 1:00 PM EDT Office [place] [address] Shady Marquez, SPLITTING MACHINE OPERATOR [facility] [place] [address] Abdominal spasms (Primary Dx) Discharge Disposition: Home Social History Tobacco Use Types Packs/Day Years Used Date Smoking Tobacco: Never Assessed Sex and Gender Information Value Date Recorded Sex Assigned at Not on file Gender Identity Not on file Sexual Orientation Not on file documented as of this encounter Last Filed Vital Signs Vital Sign Reading Time Taken Comments Blood Pressure 105/72 05/22/2012 12:47 PM EDT Pulse 114 05/22/2012 12:47 PM EDT Temperature - - Respiratory Rate - - Oxygen Saturation - - Inhaled Oxygen Concentration - - Weight 136.1 kg (300 lb) 05/22/2012 12:47 PM EDT Height 165.1 cm (5' 5) 05/22/2012 12:47 PM EDT Body Mass Index 49.92 05/22/2012 12:47 PM EDT documented in this encounter Progress Notes * Jimmy, Instructor, RN - 05/22/2012 1:22 PM EDT Section of Gastroenterology and Hepatology [address] [place] [id number] .Gillian Jorgensen : 1970 Patient is here for further evaluation of gastrointestinal symptoms at the request of Christos Avina MD. HPI: Hx of IBS. Last saw pt in 2006. Spoke on phone in 2008, bentyl working well. Did not finish recommended testing. Well controlled with taking Bentyl 10mg qam and Imodium 2mg qam. She may have an occasional flare. Regular bowel habits. No blood in stool, abdominal pain, incontinence, anal pain. Does not awake during the night with sx. But notes if she does have sx, it is usually first thing inthe morning. Weight stable. Ibuprofen 600-800mg qd, 2-3x per week, for back pain. No food allergies. No constipation, straining. Minimal gas, bloat, distention. Appetite good. No pre/post-prandial sx. Denies reflux, dysphagia, odynophagia, n/v, chest pain or ent concerns. History Social History ??? Marital Status: Spouse Name: N/A Number of Children: N/A ??? Years of Education: N/A Occupational History ??? Not on file. Social History Main Topics ??? Smoking status: Not on file ??? Smokeless tobacco: Not on file ??? Alcohol Use: Not on file ??? Drug Use: Not on file ??? Sexually Active: Not on file Other Topics Concern ??? Not on file Social History Narrative ??? No narrative on file Medical History: ibs, migraines, anxiety/depression, urinary incontinence Surgical History: csection, D & C, carpal tunnel, appendectomy, tonsillectomy Family History: brother and sister: ibs Not on File Current outpatient prescriptions:topiramate (TOPAMAX) 50 mg tablet, Take 50 mg by mouth daily., Disp: , Rfl: ; oxybutynin (DITROPAN) 5 mg tablet, Take 5 mg by mouth 2 times daily., Disp: , Rfl: ; metFORMIN (GLUCOPHAGE) 850 mg tablet, Take 850 mg by mouth 2 times daily (with meals)., Disp: , Rfl: ; ropinirole (REQUIP) 4 mg tablet, Take 8 mg by mouth nightly., Disp: , Rfl: dicyclomine (BENTYL) 10 mg capsule, Take 1 capsule by mouth 3 times daily (before meals)., Disp: 90capsule, Rfl: 5; CIS Free Text Med - immodium AD, , Disp: , Rfl: ; citalopram (CELEXA) 10 mg tablet, 10MG = 1 Tablet(s), PO, Once daily, Disp: , Rfl: Review of Systems - Negative except General: Cardiac: Resp: GI:see above : MS: Neuro: Skin: Psyche: Sleep: Endo: Impression: 1.IBS-D: fodmap diet. Probiotics. Bentyl 10mg qd. Imodium qd. With new diet and probiotics may needless medication. 2. Expressed concern for ibuprofen use. Try to minimize. Consider tylenol. If stomach upset and needs nsaid, may need to consider ppi. 3. Pt to call gi prn. I spent a total of 45 minutes face to face with this patient; 31 minutes were spent counseling the patient in the medical problems described above. Sincerely, Shady Marquez NP Section of Gastroenterology and Hepatology documented in this encounter Plan of Treatment Not on file documented as of this encounter Visit Diagnoses Diagnosis Abdominal spasms- Primary Abdominal pain, unspecified site documented in this encounter Care Teams Electrician Substation Relationship Specialty Start Date End Date None None PCP - General 05/22/12 11/05/12 documented as of this encounter
--- OUTSIDE RECORDS SUMMARY | 2024-05-22 00:15 | XMS_ITS | Encounter Summary ---
Author Organization [facility] Address [address] [place] [address] Care Team Providers Care Allied Health Professional Name Role Phone Christos Avina MD Primary Care Provider [phone] Encounter Details Date Type Department Care Team (Late st Contact Info) Description 06/02/2013 Results Only [facility] [phone] Raven Corley MD [address] [place] [address] Social History Tobacco Use Types Packs/Day Years Used Date Smoking Tobacco: Never Assessed Sex and Gender Information Value Date Recorded Sex Assigned at Not on file Gender Identity Not on file Sexual Orientation Not on file documented as of this encounter Plan of Treatment Not on file documented as of this encounter Procedures Procedure Name Priority Date/Time Associated Diagnosis Comments SURGICAL PATHOLOGY Routine 06/02/2013 16 :16 EDT documented in this encounter Results * SURGICAL PATHOLOGY (06/02/2013 16:16 EDT) Pathology Report: SURGICAL PATHOLOGY REPORT Reports generated via electronic interface contain original data; however they are lacking the format of the original report. Caution should be taken when reading/interpreting unformatted reports. Name: ? GILLIAN JORGENSEN ? Accession #: ? [id number] ? : ? 1970 (Age: 42) ??F ? Collect Date: ? 06/02/2013 ? Location: ? [facility] ? Receive Date: ? 06/02/2013 ? Provider: RAVEN CORLEY MD Copy to: JUDE BROWNE MD ? Final Pathologic Diagnosis: ENDOMETRIUM, BIOPSY: - ??Simple endometrial hyperplasia without atypia. See comment. Comment: ? Machine Operator Transplanter sections of this case were reviewed at the intradepartmental consultation conference. ? Dr. Deluna 06/04/2013 01:04 PM Document reviewed and electronically signed by: RAJESH CLARK MD Report ??Date: 06/04/2013 15:33 By the signature above, the attending physician certifies that he/she has personally conducted a gross and/or microscopic examination of the described specimens and rendered or confirmed the above diagnosis. Specimen(s) Received: Endometrial bx Clinical History: Hx of endometrial hyperplasia without atypia; was taken off her meds 11/2012; irregular menses Gross Description: ? Received in formalin labelled with proper patient identification (initials H, M) and endometrial bx is an aggregate of roth-brown and focally hemorrhagic tissue (2.2 x 1.6 x 0.5 cm). Submitted in toto in [address] Tavarez 06/02/2013 04:31 PM End of Report [facility] 06/02/2013 16:1 6 EDT 06/02/2013 16:16 EDT Raven Corley MD PATHOLOGY ORDERABLES [facility] [address] [place] [address] documented in this encounter Visit Diagnoses Not on filedocumented in this encounter Care Teams Allied Health Professional Relationship Specialty Start Date End Date Christos Avina MD [facility] [address] [place] [address] PCP - General 09/10/09 06/02/13 documented as of this encounter
--- OUTSIDE RECORDS SUMMARY | 2024-05-22 00:15 | XMS_ITS | Encounter Summary ---
Author Organization [facility] Address [address] [place] [address] Care Team Providers Care Consumer Marketing Analyst Name Role Phone Malika Corley MD Primary Care Provider Lu cortes Encounter Details Date Type Department Care Team (Latest Contact Info) Description 05/16/2018 18:36 EDT - 05/16/2018 23:59 EDT Hospital Encounter [address] [address] Unknown, Provider, Discharge Disposition: Home or Self Care Social History Tobacco Use Types Packs/Day Years Used Date Smoking Tobacco: Never Assessed Sex and Gender Information Value Date Recorded Sex Assigned at Not on file Gender Identity Not on file Sexual Orientation Not on file documented as of this encounter Discharge Disposition Disposition Code Departure Means Destination Home or Self Usp documented in this encounter Plan of Treatment Not on file documented as of this encounter Visit Diagnoses Not on filedocumented in this encounter Care Teams Consumer Marketing Analyst Relationship Specialty Start Date End Date Malika Corley MD [address] [place] [address] PCP - General 06/03/13 8 documented as of this encounter
--- OUTSIDE RECORDS SUMMARY | 2024-05-22 00:15 | XMS_ITS | Encounter Summary ---
Author Organization [facility] Address [facility] [place] [address] Care Team Providers Care Road Roller Operator Name Role Phone Rizwan Liang Primary Care Provider [phone] Reason for Visit * Reason Comments Leg Swelling BILAT EDEMA Encounter Details Date Type Department Care Team (Late st Contact Info) Description 11/14/2012 9:20 AM EST Office [place] [address] Marily Rubio MD [facility] [place] [address] Leg swelling (Primary Dx) Discharge Disposition: Home Social History [...] Mass Index 51 11/14/2012 10:18 AM EST documented in this encounter Progress Notes * Marily Rubio MD - 11/14/2012 10:43 AM EST Presents for evaluation of R>L leg swelling as requested by Dr. Liang. She notes that prior to [place] she injured her right johnson. Subsequent to this she noted right leg swelling and redness. She presented to the emergency room at which time antibiotics were started. The antibiotics did not improve the redness and therefore she presented to Dr. Liang. Her antibiotics were changed and she was placed on bed rest. She notes that currently her swelling has improved but not completely resolved. 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 At the end of the day she notes swelling that leads to markings were her socks have been. She denies any chest pain or shortness of breath. She denies any cardiac issues. Her diabetes is well controlled. She denies any DVTs or phlebitis in the past. She does not wear compression stockings. Review of Systems Constitutional: Negative. HENT: Negative. Eyes: Negative. Respiratory: Negative. Cardiovascular: Negative. Gastrointestinal: Negative. Genitourinary: Negative. Musculoskeletal: Negative. Skin: Negative. Neurological: Negative. Physical Exam Constitutional: She appears well-developed and well-nourished. HENT: Head: Normocephalic and atraumatic. Eyes: EOM are normal. Pupils are equal, round, and reactive to light. Neck: Normal range of motion. Neck supple. Cardiovascular: Normal rate and regular rhythm. Pulses: Carotid pulses are 2+ on the right side, and 2+ on the left side. Radial pulses are 2+ on the right side, and 2+ on the left side. Femoral pulses are 2+ on the right side, and 2+ on the left side. Popliteal pulses are 2 on the right side, and 2+ on the left side. Dorsalis pedis pulses are 2 on the right side, and 2+ on the left side. Posterior tibial pulses are 2 on the right side, and 2+ on the left side. Pulmonary/Chest: Effort normal and breath sounds normal. Abdominal: Soft. Bowel sounds are normal. Musculoskeletal: Normal range of motion. Bilateral LE with 1+ edema, no evidence or varicosities, small patches of telangectasias bilaterally Venous duplex: NO DVTs bilaterally, No deep incompetence bilaterally, no superficial reflux on the right; short segment of LSV on left with mild reflux A/P: Given her physical exam and venous duplex I do not believe that her leg swelling is associatedwith arterial or venous disease. We discussed daily use of compression stockings to help with swelling. This may be due to injury leading to mild lymphedema of her right leg. She will follow up with Dr. Liang. All questions were answered. Follow up PRN documented in this encounter Plan of Treatment Not on file documented as of this encounter Visit Diagnoses Diagnosis Leg swelling- Primary Swelling of limb documented in this encounter Care Teams Road Roller Operator Relationship Specialty Start Date End Date Rizwan Liang DO [address] [place] [address] PCP - General 11/06/12 documented as of this encounter
--- OUTSIDE RECORDS SUMMARY | 2024-05-22 00:15 | XMS_ITS | Encounter Summary ---
Author Organization [facility] Address [address] [place] [address] Care Team Providers Care Kiln Head House Operator Name Role Phone Unavailable Primary Care Provider Unavailabl e Encounter Details Date Type Department Care Team (Late st Contact Info) Description 09/08/2009 Orders Only [facility] [phone] Raven Corley MD [address] [place] [address] Social History Tobacco Use Types Packs/Day Years Used Date Smoking Tobacco: Never Assessed Sex and Gender Information Value Date Recorded Sex Assigned at Not on file Gender Identity Not on file Sexual Orientation Not on file documented as of this encounter Plan of Treatment Not on file documented as of this encounter Procedures Procedure Name Priority Date/Time Associated Diagnosis Comments CYTOPATHOLOGY Routine 09/08/2009 0:00 EST SURGICAL PATHOLOGY Routine 09/08/2009 0:00 EST documented in this encounter Results * SURGICAL PATHOLOGY (09/08/2009 0:00 EST) Pathology Report: SURGICAL PATHOLOGY REPORT ? Reports generated via electronic interface contain original data; ? however they are lacking the format of the original report. ? Caution should be taken when reading/interpreti ng unformatted reports. ? Name: ? JORGENSEN, GILLIAN L ? Accession #: ? [id number] ? : ? 1970 (Age: 39) ??F ? Collect Date: ? 09/08/2009 ? Location: ? [facility] ? Receive Date: ? 09/08/2009 ? Provider: RAVEN S ASHELY MD ? Copy to: AMY MARCIAL WOOD MD ? Final Pathologic Diagnosis: ? Endometrium, biopsy: ? - Disordered proliferative endometrium. ? Document reviewed and electronically signed by: ? Niko Cruz MD ? Report ??Date: 09/13/2009 16:49 ? By the signature above, the attending physician certifies that he/she has ? personally conducted a gross and/or microscopic examination of the described ? specimens and rendered or confirmed the above diagnosis. ? Specimen(s) Received: ? Endometrial bx ? Clinical History: ? Postmenopausal bleeding ? Gross Description: ? Received in formalin labelled Gillian Jorgensen and endometrial biopsy is a 2.4 x 1.5 x 0.4 cm aggregate of pink-roth to red-roth, focally hemorrhagic ? tissue fragments admixed with mucus and clotted blood. ??The specimen is filtered and entirely submitted as (A1) and (A2). ??(L. Anna)/ljn ? End of Report ? BILLY GARCÍA 09/08/2009 09/08/2009 18: 00 EST Raven Corley MD PATHOLOGY ORDERABLES [facility] [address] [place] [address] * CYTOPATHOLOGY (09/08/2009 0:00 EST) Pathology Report: CYTOPATHOLOGY REPORT ? Reports generated via electronic interface contain original data; ? however they are lacking the format of the original report. ? Caution should be taken when reading/interpreti ng unformatted reports. ? Name: ? GILLIAN JORGENSEN ? Accession #: ? [id number] ? : ? 1970 (Age: 39) ??F ?Collect Date: ? 09/08/2009 ? Location: ? [facility] ? Receive Date: ? 09/08/2009 ? Provider: ?RAVEN S ASHELY MD ? Copy to: ? Specimen/Source: ?Pap Test, Cervix/Endocervix, ThinPrep Imaging System ? with manual evaluation ? Last Menstrual Period: ? Menstrual/Pregnanc y Status: ? Menopausal ? Other: ? HPVA - HPV testing requested if ASC-US on the current ThinPrep Pap test. ? SPECIMEN ADEQUACY ? Satisfactory for Evaluation ? - transformation zone component present ? GENERAL CATEGORIZATION ? Negative for Intraepithelial Lesion or Malignancy ? INTERPRETATION ? 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 ? Document reviewed and electronically signed by: ? Mona Cox, SCT(ASCP) ? Report Date: ??09/16/2009 14:49 ? End of Report ? BILLY GARCÍA 09/08/2009 09/08/2009 Raven Corley MD PATHOLOGY ORDERABLES [facility] [address] [place] [address] documented in this encounter Visit Diagnoses Not on filedocumented in this encounter
--- OUTSIDE RECORDS SUMMARY | 2024-05-22 00:15 | XMS_ITS | Encounter Summary ---
Author Organization [facility] [place] [address] Care Team Providers Care Zinc Miner Blasting Name Role Phone Christos Avina MD Primary Care Provider [phone] Reason for Visit * Reason Onset Date Comments Medication Refill 03/06/2012 Encounter Details Date Type Department Care Team (Late st Contact Info) Description 03/06/2012 Refill [place] [address] Shady Marquez APRN [facility] [place] [address] Abdominal spasms Social History Tobacco Use Types Packs/Day Years Used Date Smoking Tobacco: Never Assessed Sex and Gender Information Value Date Recorded Sex Assigned at Not on file Gender Identity Not on file Sexual Orientation Not on file documented as of this encounter Plan of Treatment Not on file documented as of this encounter Visit Diagnoses Diagnosis Abdominal spasms Abdominal pain, unspecified site documented in this encounter Care Teams Zinc Miner Blasting Relationship Specialty Start Date End Date Christos Avina MD [address] [facility] [place] [address] PCP - General 09/20/10 05/21/12 documented as of this encounter
--- OUTSIDE RECORDS SUMMARY | 2024-05-22 00:15 | XMS_ITS | Encounter Summary ---
Author Organization [facility] Address [address] [place] [address] Care Team Providers Care Print Shop Chief Clerk Name Role Phone Malika Corley MD Primary Care Provider uL cortes Encounter Details Date Type Department Care Team (Latest Contact Info) Description 06/03/2018 14:18 EDT - 06/03/2018 23:59 EDT Hospital Encounter [address] [address] Unknown, ProviderMD Discharge Disposition: Home or Self Care Social History Tobacco Use Types Packs/Day Years Used Date Smoking Tobacco: Never Assessed Sex and Gender Information Value Date Recorded Sex Assigned at Not on file Gender Identity Not on file Sexual Orientation Not on file documented as of this encounter Discharge Disposition Disposition Code Departure Means Destination Home or Self Prison documented in this encounter Plan of Treatment Not on file documented as of this encounter Visit Diagnoses Not on filedocumented in this encounter Care Teams Print Shop Chief Clerk Relationship Specialty Start Date End Date Malika Corley MD [address] [place] [address] PCP - General 06/03/13 8 documented as of this encounter
--- OUTSIDE RECORDS SUMMARY | 2024-05-22 00:16 | XMS_ITS | Encounter Summary ---
Author Organization [facility] Address [address] [place] [address] Care Team Providers Care Thermodynamic Physicist Name Role Phone Christos Avina MD Primary Care Provider [phone] Encounter Details Date Type Department Care Team (Late st Contact Info) Description 11/18/1999 Results Only [facility] - Maple conversion [address] [place] [address] Ez Soliz MD [address] [place], [place] [id number] Social History Tobacco Use Types Packs/Day Years Used Date Smoking Tobacco: Never Assessed Sex and Gender Information Value Date Recorded Sex Assigned at Not on file Gender Identity Not on file Sexual Orientation Not on file documented as of this encounter Plan of Treatment Not on file documented as of this encounter Procedures Procedure Name Priority Date/Time Associated Diagnosis Comments CYTOPATHOLOGY Routine 11/18/1999 14:44 EST documented in this encounter Results * CYTOPATHOLOGY (11/18/1999 14:44 EST) Pathology Report: CYTOPATHOLOGY REPORT Reports generated via electronic interface contain original data; however they are lacking the format of the original report. Caution should be taken when reading/interpreti ng unformatted reports. Name: ? GILLIAN JORGENSEN ? Accession #: ? [id number] : ? 1970 (Age: 29) ??F ?Collect Date: ? 11/18/1999 Location: ?Receive Date: ? 11/18/1999 Provider: ?EZ SOLIZ MD Copy to: ?EZ SOLIZ MD ? Specimen/Source: ?Director Marketing Communications ThinPrep Last Menstrual Period: ? GYNECOLOGIC ??CYTOPATHOLOGY ??REPORT Name: GILLIAN JORGENSEN ?[facility] : 1970 ?? 29Y F ?Client ID: [id number] SS#: ? Clinician: EZ SOLIZ MD ?? Location: [facility] ??Copy to: ?? Specimen: ?Director Marketing Communications ThinPrep ? Source: Cervix/Endocervix ?Collected: 11/16/99 ? Received: 11/18/1999 ?LMP: 12/12/98 ? Hormone Therapy: No ? : No ? Radiation Therapy: No ?? Post : Yes ? Chemotherapy: No ?IUD: No ? Prev Abnormal Pap: No ?? Clinical Hx: ?(Blank franklin indicate information not provided on requisition) SPECIMEN ADEQUACY: ? Satisfactory For Evaluation ?? GENERAL CATEGORIZATION: ? BENIGN CELLULAR CHANGES ?? DESCRIPTIVE DIAGNOSIS: ? Reactive Cellular Changes Associated With Inflammation Present ? (Includes Repair) ? Predominance Of Coccobacilli Present Consistent With A Shift In ? Vaginal Moira ? Reviewed And Electronically Signed By: ? Booker Kendrick M.D. ? Report Date: ?? 11/24/1999 [facility] Archived Tests - Final Diagnosis Text Field: Clinical History : ? Document reviewed and electronically signed by: ? Conversion ? Report Date: ??11/24/1999 00:00 End of Report [facility] 11/18/1999 14:4 4 EST 11/18/1999 14:45 EST Ez Soliz MD PATHOLOGY ORDERABLES [facility] [address] [place] [address] documented in this encounter Visit Diagnoses Not on filedocumented in this encounter Care Teams Thermodynamic Physicist Relationship Specialty Start Date End Date Christos Avina MD [address] [place] [id number] PCP - General 09/10/09 06/02/13 documented as of this encounter
--- OUTSIDE RECORDS SUMMARY | 2024-05-22 00:16 | XMS_ITS | Encounter Summary ---
Author Organization [facility] Address [address] [place] [address] Care Team Providers Care Construction Assistant Name Role Phone Christos Avina MD Primary Care Provider [phone] Encounter Details Date Type Department Care Team (Late st Contact Info) Description 10/24/2001 Results Only [facility] - Maple conversion [address] [place] [address] Ez Soliz MD [address] [place], [place] [id number] Social History Tobacco Use Types Packs/Day Years Used Date Smoking Tobacco: Never Assessed Sex and Gender Information Value Date Recorded Sex Assigned at Not on file Gender Identity Not on file Sexual Orientation Not on file documented as of this encounter Plan of Treatment Not on file documented as of this encounter Procedures Procedure Name Priority Date/Time Associated Diagnosis Comments SURGICAL PATHOLOGY Routine 10/24/2001 0:00 EST documented in this encounter Results * SURGICAL PATHOLOGY (10/24/2001 0:00 EST) Pathology Report: SURGICAL PATHOLOGY REPORT Reports generated via electronic interface contain original data; however they are lacking the format of the original report. Caution should be taken when reading/interpreti ng unformatted reports. Name: ? GILLIAN JORGENSEN ? Accession #: ? [id number] ? : ? 1970 (Age: 31) ??F ? Collect Date: ? 10/24/2001 ? Location: ? [facility] ? Receive Date: ? 10/25/2001 ? Provider: EZ SOLIZ MD Copy to: ALEX LEAVITT MD ? Final Pathologic Diagnosis: ? Endometrium, curettage: 1. ?Inactive endometrium with extensive stromal breakdown. 2. ?Pseudodecidualiz ation of stroma consistent with exogenous hormone effect. 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 4. ?Fragments of benign endocervical tissue and mature squamous epithelium. Document reviewed and electronically signed by: Kendra Riley MD Report ??Date: 10/30/2001 14:42 By the signature above, the attending physician certifies that he/she has personally conducted a gross and/or microscopic examination of the described specimens and rendered or confirmed the above diagnosis. Specimen(s) Received: ? Uterine contents Clinical History: ? On high doses of est/prog, menorrhagia Gross Description: ? Received in formalin labelled Jorgensen and uterine contents are several irregularly shaped fragments of dark brown-red tissue which measure 1.0 x 0.8 x 0.3 cm in aggregate. ??The specimen is submitted entirely in one cassette. ??(Dr. Bowers-[place])/[facility] End of Report [facility] 10/24/2001 10/25/2001 15: 06 EST Ez Soliz MD PATHOLOGY ORDERABLES [facility] [address] [place] [address] documented in this encounter Visit Diagnoses Not on filedocumented in this encounter Care Teams Construction Assistant Relationship Specialty Start Date End Date Christos Avina MD [address] [place] [phone] PCP - General 09/10/09 06/02/13 documented as of this encounter
--- OUTSIDE RECORDS SUMMARY | 2024-05-22 00:16 | XMS_ITS | Encounter Summary ---
Author Organization [facility] Address [address] [place] [address] Care Team Providers Care Property Specialist Name Role Phone Christos Avina MD Primary Care Provider [phone] Encounter Details Date Type Department Care Team (Late st Contact Info) Description 01/11/2004 Results Only [facility] - Maple conversion [address] [place] [address] Ez Soliz MD [address] [place], [place] [phone] Social History Tobacco Use Types Packs/Day Years Used Date Smoking Tobacco: Never Assessed Sex and Gender Information Value Date Recorded Sex Assigned at Not on file Gender Identity Not on file Sexual Orientation Not on file documented as of this encounter Plan of Treatment Not on file documented as of this encounter Procedures Procedure Name Priority Date/Time Associated Diagnosis Comments CYTOPATHOLOGY Routine 01/11/2004 0:00 EST documented in this encounter Results * CYTOPATHOLOGY (01/11/2004 0:00 EST) Pathology Report: CYTOPATHOLOGY REPORT Reports generated via electronic interface contain original data; however they are lacking the format of the original report. Caution should be taken when reading/interpreti ng unformatted reports. Name: ? GILLIAN JORGENSEN ? Accession #: ? [id number] : ? 1970 (Age: 33) ??F ?Collect Date: ? 01/11/2004 Location: ? [facility] ? Receive Date: ? 01/14/2004 Provider: ?EZ SOLIZ MD Copy to: ? Specimen/Source: ?ThinPrep Pap Test, Cervix/Endocervix Last Menstrual Period: ? 2/04 ? SPECIMEN ADEQUACY ? Satisfactory for Evaluation - transformation zone component present GENERAL CATEGORIZATION ? Negative for Intraepithelial Lesion or Malignancy ? Document reviewed and electronically signed by: ? Hannah De La Rosa, [place](ASCP) ? Report Date: ??01/19/2004 07:52 End of Report [facility] 01/11/2004 01/14/2004 Ez Soliz MD PATHOLOGY ORDERABLES [facility] [address] [place] [address] documented in this encounter Visit Diagnoses Not on filedocumented in this encounter Care Teams Property Specialist Relationship Specialty Start Date End Date Christos Avina MD [address] [place] [phone] PCP - General 09/10/09 06/02/13 documented as of this encounter
--- OUTSIDE RECORDS SUMMARY | 2024-05-22 00:16 | XMS_ITS | Encounter Summary ---
Author Organization [facility] Address [address] [place] [address] Care Team Providers Care Cable Driller Name Role Phone Christos Avina MD Primary Care Provider [phone] Encounter Details Date Type Department Care Team (Late st Contact Info) Description 08/23/2001 Results Only [facility] - Maple conversion [address] [place] [address] Nancy Nunez, [facility] [address] [place] [address] [place] [address] Social History Tobacco Use Types [...] Priority Date/Time Associated Diagnosis Comments CYTOPATHOLOGY Routine 08/23/2001 0:00 EDT documented in this encounter Results * CYTOPATHOLOGY (08/23/2001 0:00 EDT) Pathology Report: CYTOPATHOLOGY REPORT Reports generated via electronic interface contain original data; however they are lacking the format of the original report. Caution should be taken when reading/interpreti ng unformatted reports. Name: ? GILLIAN JORGENSEN ? Accession #: ? [id number] : ? 1970 (Age: 30) ??F ?Collect Date: ? 08/23/2001 Location: ? [facility] ? Receive Date: ? 08/27/2001 Provider: ?[facility] Copy to: ? Specimen/Source: ?ThinPrep Pap Test, Cervix/Endocervix Last Menstrual Period: ? Previous Gynecologic Pathology: ? Benign cellular changes: ? SPECIMEN ADEQUACY ? Satisfactory for evaluation. GENERAL CATEGORIZATION ? Benign Cellular Changes DESCRIPTIVE DIAGNOSIS ? 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 ? Document reviewed and electronically signed by: ? KRYSTLE Lilly(ASCP) ? Report Date: ??08/28/2001 14:57 End of Report [facility] 08/23/2001 08/27/2001 [facility] PATHOLOGY ORDERABLES Performing Organization Address City/State/[facility] Co de Phone Number [facility] [address] [place] [address] documented in this encounter Visit Diagnoses Not on filedocumented in this encounter Care Teams Cable Driller Relationship Specialty Start Date End Date Christos Avina MD [address] [place] [address] PCP - General 09/10/09 06/02/13 documented as of this encounter
--- NOTE | 2024-05-22 12:15 | DI.MAMMO_ITS ---
Exam(s) MAMMO SCREENING EXAM: MAMMO SCREENING CLINICAL HISTORY: screening TECHNIQUE: Bilateral full field digital CC and MLO mammographic images were obtained with 3D tomosyn thesis and utilizing computer aided detection (CAD). COMPARISON: Available for comparison. FINDINGS: Masses/Architectural Distortion: None seen. Microcalcifications: No suspicious pleomorphic-type are seen. Skin Thickening/Nipple Retraction: None. IMPRESSION: 1. No significant interval change with no specific features of malignancy noted. 2. Unless there is more urgent need, screening mammography is recommended, as per [place] [employer] guidelines. BI-RADS Category 1 - Negative Breast Density - Category A - Almost entirely fatty Breast density category C or D implies that the patient has dense breast tissue. Dense breast tissue is very common and is not abnormal but dense breast tissue can make it harder to find cancer on a ma mmogram. Also, dense breast tissue may increase their breast cancer risk. This information about the result of the mammogram report was provided to the patient to raise their awareness. Use this report when you speak with the patient about their risks for breast cancer, which includes their family hist ory. At that time, you may recommend for more screening tests (Ultrasound or MRI) as they might be us eful based on their risk. A negative radiographic report should not delay biopsy if a dominant or clinically suspicious mass is present. Up to ten percent of cancers are not identified on mammography. A negative report may reinforce clinical impression. Adenosis and dense breasts may obscure an underlying neoplasm. False positive reports average 6 to 10%. Patient will receive a letter notifying them of these results.
== END ==
PROVIDERS: Visit Provider Nurse Practitioner Women's Health
DX: Z12.31 Encounter for screening mammogram for malignant neoplasm of breast (principal)
CPT/HCPCS: 77063; 77067

== ENCOUNTER 2024-06-11 01:24 | Outpatient (CLI) | payer BC, SELFPAY ==
--- NOTE | 2024-06-11 15:12 | DI.MAMMO_ITS ---
Exam(s) MAMMO SCREENING EXAM: MAMMO SCREENING CLINICAL HISTORY: screening TECHNIQUE: Bilateral full field digital CC and MLO mammographic images were obtained with 3D tomosyn thesis and utilizing computer aided detection (CAD). COMPARISON: Available for comparison. FINDINGS: Masses/Architectural Distortion: None seen. Microcalcifications: No suspicious pleomorphic-type are seen. Skin Thickening/Nipple Retraction: None. IMPRESSION: 1. No significant interval change with no specific features of malignancy noted. 2. Unless there is more urgent need, screening mammography is recommended, as per [place] [employer] guidelines. BI-RADS Category 1 - Negative Breast Density - Category A - Almost entirely fatty Breast density category C or D implies that the patient has dense breast tissue. Dense breast tissue is very common and is not abnormal but dense breast tissue can make it harder to find cancer on a ma mmogram. Also, dense breast tissue may increase their breast cancer risk. This information about the result of the mammogram report was provided to the patient to raise their awareness. Use this report when you speak with the patient about their risks for breast cancer, which includes their family hist ory. At that time, you may recommend for more screening tests (Ultrasound or MRI) as they might be us eful based on their risk. A negative radiographic report should not delay biopsy if a dominant or clinically suspicious mass is present. Up to ten percent of cancers are not identified on mammography. A negative report may reinforce clinical impression. Adenosis and dense breasts may obscure an underlying neoplasm. False positive reports average 6 to 10%. Patient will receive a letter notifying them of these results.
== END 2024-06-11 01:44 ==
PROVIDERS: Visit Provider Nurse Practitioner Women's Health
DX: Z12.31 Encounter for screening mammogram for malignant neoplasm of breast (principal)
CPT/HCPCS: 77063; 77067

== ENCOUNTER 2025-06-10 10:49 | Outpatient (REF) | payer BC, SELFPAY ==
--- NOTE | 2025-06-10 10:30 | ENDOMET_PTH ---
PATIENT: Gillian Jorgensen LOC: [facility] U#:[id number] AGE/SX: 54/F ROOM: RE06/10/[address]: Miley Reyes NP : 1970 BED: DIS: 06/10/2025 SPEC #: [id number] RECD: 06/10/25 13:00 STATUS: CESAR REShannon #: [id number] BROOK: 06/10/25 10:[address]: Eric ETIENNE,Miley DEPT: Surgical Specimen RECD BY: Linh Bond ENTERED: 06/10/25 13:00 SP TYPE: Endomet OTHR DR: Yordan Mayes Tissues: 1 - ENDOMETRIUM BX/JENNIFER Procedures: GROSS AND MICRO LEVEL 4 Comments: [id number]
== END 2025-06-10 10:50 | disposition home or self-care (01) ==
LOC: LBN 10:49
PROVIDERS: PCP Student in an Organized Health Care Education/Training Program; Visit Provider Nurse Practitioner Women's Health
DX: N84.0 Polyp of corpus uteri (principal)
CPT/HCPCS: 88305